=== PATIENT | female | born 1935 | race Hispanic/Latino ===

== ENCOUNTER 2017-02-23 05:21 | Emergency (ER) | payer MEDICARE ==
[2017-02-23 05:44] VITALS: RESP 18; TEMP 97.8; O2SAT 100
--- NOTE | 2017-02-23 05:48 | ED PDOC ---
Arrival/HPI - General Chief Complaint: Back Pain Time Seen by Provider: 02/23/17 05:41 Historian: Patient - History of Present Illness Narrative History of Present Illness (Text): 02/23/17 05:42 Lara Maxwell is an 82 year old female, whose past medical history includes diabetes and hypertension, who presents to the emergency department complaining of right-sided flank pain radiating to the front lower abdomen for a few hours. Patient's family notes patient experienced occassional nausea and urinary hesitancy early this morning. Patient denies any fever, chills, chest pain, shortness of breath, nausea, vomiting, diarrhea, neck pain, headache, dizziness , trauma/injury, suicidal/homicidal ideation or any other complaints. Time/Duration: 4-6 hours Symptom Onset: Gradual Symptom Course: Unchanged Severity Level: Mild Context: Home Past Medical History - Provider Review Nursing Documentation Reviewed: Yes - Infectious Disease Hx of Infectious Diseases: None - Cardiac Hx Cardiac Disorders: Yes Hx Hypertension: Yes - Pulmonary Hx Respiratory Disorders: Yes Hx Asthma: Yes Hx Emphysema: Yes - Renal Hx Renal Disorder: No - Endocrine/Metabolic Hx Endocrine Disorders: Yes Hx Diabetes Mellitus Type 2: Yes - Hematological/Oncological Hx Blood Disorders: No - Psychiatric Hx Substance Use: No - Surgical History Hx Cholecystectomy: Yes Hx Orthopedic Surgery: Yes (Left Knee Replacement) - Anesthesia Hx Anesthesia: Yes Hx Anesthesia Reactions: No Hx Malignant Hyperthermia: No Family/Social History - Physician Review Nursing Documentation Reviewed: Yes Family/Social History: No Known Family HX Smoking Status: Never Smoked Hx Alcohol Use: No Hx Substance Use: No Allergies/Home Meds Allergies/Adverse Reactions: Allergies No Known Allergies Allergy (Verified 02/23/17 05:35) Home Medications: Home Meds Medication Instructions Recorded Confirmed Aspirin [Adult Low Dose Aspirin EC] 81 mg PO DAILY 02/23/17 02/23/17 Atorvastatin [Lipitor] 20 mg PO HS 02/23/17 02/23/17 Azilsartan Med/Chlorthalidone 1 each PO [facility]HS 02/23/17 02/23/17 [Edarbyclor 40-25 mg Tablet] Azilsartan Medoxomil [Edarbi] 80 mg PO TTS 02/23/17 02/23/17 Carvedilol [Coreg CR] 20 mg PO DAILY 02/23/17 02/23/17 Doxazosin [Cardura] 2 mg PO DAILY 02/23/17 02/23/17 Fluticasone Furoate [Arnuity 200 mcg IH DAILY 02/23/17 02/23/17 Ellipta] Gabapentin [Neurontin] 100 mg PO TID 02/23/17 02/23/17 Insulin Glargine, Recombina 30 unit SQ HS 02/23/17 02/23/17 [Lantus] Nifedipine [Nifediac cc] 60 mg PO DAILY 02/23/17 02/23/17 Repaglinide [Prandin] 1 mg PO TID 02/23/17 02/23/17 Spironolactone [Aldactone] 25 mg PO DAILY 02/23/17 02/23/17 Umeclidinium Brm/Vilanterol Tr 1 each IH DAILY 02/23/17 02/23/17 [Anoro Ellipta 62.5-25 Mcg INH] Review of Systems - Physician Review All systems were reviewed & negative as marked: Yes - Review of Systems Constitutional: absent: Fevers, Night Sweats Eyes: absent: Vision Changes ENT: absent: Hearing Changes Respiratory: absent: SOB, Cough Cardiovascular: absent: Chest Pain, Syncope Gastrointestinal: absent: Abdominal Pain Genitourinary Female: Urine Output Changes. absent: Dysuria Musculoskeletal: Back Pain (right-sided flank pain radiating to front lower abdomen). absent: Arthralgias Skin: absent: Rash, Pruritis Neurological: absent: Headache, Dizziness Endocrine: absent: Diaphoresis Hemo/Lymphatic: absent: Adenopathy Psychiatric: absent: Depression Physical Exam Vital Signs Reviewed: Yes Vital Signs Temp Pulse Resp BP Pulse Ox 02/23/17 05:21 97.8 F 76 18 177/110 H 100 Temperature: Afebrile Blood Pressure: Hypertensive Pulse: Regular Respiratory Rate: Normal Appearance: Positive for: Well-Appearing, Non-Toxic, Comfortable Pain Distress: None Mental Status: Positive for: Alert and Oriented X 3 - Systems Exam Head: Present: Atraumatic, Normocephalic Pupils: Present: PERRL Extroacular Muscles: Present: EOMI Conjunctiva: Present: Normal Mouth: Present: Moist Mucous Membranes Pharnyx: Present: Normal Neck: Present: Normal Range of Motion Respiratory/Chest: Present: Clear to Auscultation, Good Air Exchange. No: Respiratory Distress, Accessory Muscle Use Cardiovascular: Present: Regular Rate and Rhythm, Normal S1, S2. No: Murmurs Abdomen: Present: Normal Bowel Sounds. No: Tenderness, Distention, Peritoneal Signs Back: Present: Normal Inspection. No: CVA Tenderness Upper Extremity: Present: Normal Inspection. No: Cyanosis, Edema Lower Extremity: Present: Normal Inspection. No: Edema Neurological: Present: GCS=15, CN II-XII Intact, Speech Normal Skin: Present: Warm, Dry, Normal Color. No: Rashes Psychiatric: Present: Alert, Oriented x 3, Normal Insight, Normal Concentration Medical Decision Making ED Course and Treatment: 02/23/17 05:49 Impression: 82 year old female complaining of right-sided flank pain radiating to the front lower abdomen for a few hours. Differential Diagnosis included but are not limited to: Plan: -- -- Reassess and disposition Prior Visits: Notes and results from previous visits were reviewed. Patient last seen in the ED on - Lab Interpretations Lab Results: 02/23/17 06:00 Lab Results 02/23/17 06:00: WBC 9.8, RBC 3.86, Hgb 10.2 L, Hct 31.9 L, MCV 82.6, MCH 26.4, MCHC 32.0, RDW 14.1, Plt Count 198, MPV 9.5 - RAD Interpretation Radiology Orders: 02/23/17 06:40 ABD & PELVIS W/O PO OR IV CONT [CT] Stat - EKG Interpretation EKG Interpretation (Text): 02/23/17 06:44 EKG-NSR@79 wavy baseline ,no acute changes Interpreted by ED Physician: Yes Type: 12 lead EKG - Medication Orders Current Medication Orders: Sodium Chloride (Sodium Chloride 0.9%) 1,000 mls @ 100 mls/hr IV .Q10H KELLEY Last Admin: 02/23/17 06:22 Dose: 100 mls/hr eMAR Start Stop Document 02/23/17 06:22 MAYRA (Rec: 02/23/17 06:23 JOPhoebe [id number]) Intravenous Solution Start Date 02/23/17 Start Time 06:22 Discontinued Medications Morphine Sulfate (Morphine) 2 mg IVP STAT STA Stop: 02/23/17 06:09 Last Admin: 02/23/17 06:23 Dose: 2 mg MAR Pain Assessment Document 02/23/17 06:23 MAYRA (Rec: 02/23/17 06:[id number] Pain Reassessment Is this a pain reassessment? No Sleep Is patient sleeping during reassessment? No Presence of Pain Presence of Pain Yes Pain Scale Used Pain Scale Used Numeric Location Upper or Lower Lower Pain Location Body Site Back Description Intensity of Pain at present 8 Pain Behavior Moaning Restlessness Facial Grimacing Aggravating Factors ADL's Changing Position IVP Administration Document 02/23/17 06:23 BECKIE (Rec: 02/23/17 06:23 [id number] Charges for Administration # of IVP Administrations 1 Ondansetron HCl (Zofran Inj) 4 mg IVP ONCE ONE Stop: 02/23/17 06:09 Last Admin: 02/23/17 06:23 Dose: 4 mg IVP Administration Document 02/23/17 06:23 BECKIE (Rec: 02/23/17 06:23 [id number] Charges for Administration # of IVP Administrations 1 - Transfer of Care Patient signed out to Dr:: Anthony Other: Labs/ua/CT abd/Pelvis/reassess/final disposition Disposition/Present on Arrival - Present on Arrival Any Indicators Present on Arrival: No History of DVT/PE: No History of Uncontrolled Diabetes: Yes Urinary Catheter: No History of Decub. Ulcer: No History Surgical Site Infection Following: Orthopedic Procedures - Disposition Have Diagnosis and Disposition been Completed?: No Diagnosis: Flank pain Disposition Time: 07:00 Patient Problems: Current Active Problems Problem Status Onset Flank pain Acute Condition: STABLE Referrals: En Diaz MD [Primary Care Provider] - Follow up with primary Forms: XO1 (Syriac)
[2017-02-23] MEDS ORDERED: Morphine 2 mg/ml ISec IVP STA (06:08)
[2017-02-23] MEDS ORDERED: Sodium Chloride 0.9% 1,000 ML IV SCH (06:15)
[2017-02-23] MEDS ORDERED: Morphine 2 mg/ml ISec ONE (06:17)
[2017-02-23 06:21] LABS: HEMATOCRIT 31.9 % (36.0-48.0); MEAN CELL VOLUME 82.6 fl (80.0-105.0); MEAN CORPUSCULAR HEMOGLOBIN 26.4 pg (25.0-35.0); MEAN PLATELET VOLUME 9.5 fl (7.0-11.0); RED CELL DISTRIBUTION WIDTH 14.1 % (11.5-14.5); WHITE BLOOD COUNT 9.8 10^3/ul (4.5-11.0)
--- NOTE | 2017-02-23 08:37 | CT ---
PROCEDURE: CT Abdomen and Pelvis without intravenous contrast HISTORY: Right flank pain COMPARISON: None. TECHNIQUE: CT scan of the abdomen and pelvis was performed without administration of intravenous contrast. Oral contrast was not administered. Coronal and sagittal reformatted images were obtained. Radiation dose: Total exam DLP = 1277.30 mGy-cm. This CT exam was performed using one or more of the following dose reduction techniques: Automated exposure control, adjustment of the mA and/or kV according to patient size, and/or use of iterative reconstruction technique. FINDINGS: LOWER THORAX: There is bibasilar subsegmental atelectasis. LIVER: The liver is normal in size. No gross lesion or ductal dilatation. GALLBLADDER AND BILE DUCTS: Surgically absent. PANCREAS: There is mild fatty atrophy of the pancreas. No gross lesion or ductal dilatation. SPLEEN: Normal in size. ADRENALS: Normal in size without discrete nodule. KIDNEYS AND URETERS: There is diffuse cortical atrophy in both kidneys. There is a 3 mm nonobstructing stone in the lower pole of the right kidney. There is mild distention of the right renal pelvis and mild diffuse dilatation of the right ureteral. No left hydronephrosis or nephrolithiasis. The left ureter is not dilated. VASCULATURE: There are atherosclerotic aortoiliac calcifications. No aortic aneurysm. BOWEL: The small bowel loops are normal in caliber. There is extensive colonic diverticulosis without CT evidence for acute diverticulitis. No bowel dilatation or obstruction. APPENDIX: Normal appendix. PERITONEUM: No free fluid. No free air. LYMPH NODES: No enlarged lymph nodes. BLADDER: The urinary bladder is well distended. There is a 2 mm stone in the dependent urinary bladder distal to the right UV junction. REPRODUCTIVE: The uterus is normal in size. BONES: No acute fracture. There is diffuse bone demineralization and advanced multilevel degenerative disc disease. OTHER FINDINGS: None. IMPRESSION: 1. Findings are most compatible with recent passage of a 2 mm right ureteral stone. No obstructive uropathy. 2. 3 mm nonobstructing stone in the lower pole of the right kidney. 3. Colonic diverticulosis without CT evidence for acute diverticulitis.
[2017-02-23 08:39] LABS: ALB/GLOB RATIO 1.4 (1.1-1.8); BILIRUBIN,TOTAL 0.5 mg/dL (0.2-1.3); CALCIUM 9.1 mg/dL (8.4-10.5); POTASSIUM 5.3 mmol/L (3.6-5.0); TOTAL PROTEIN 6.8 g/dL (5.8-8.3)
[2017-02-23 08:41] LABS: URINE BILIRUBIN NEGATIVE (NEGATIVE); URINE BLOOD LARGE (NEGATIVE); URINE GLUCOSE (UA) 100 mg/dL (NEGATIVE); URINE KETONE NEGATIVE (NEGATIVE); URINE LEUKOCYTE ESTERASE NEGATIVE Leu/uL (NEGATIVE); URINE PROTEIN 100 mg/dL (<30 mg/dL); URINE UROBILINOGEN 0.2 E.U./dL (<1 E.U./dL)
[2017-02-23 08:45] LABS: URINE APPEARANCE SL CLOUDY (CLEAR); URINE COLOR LIGHT RED (YELLOW)
[2017-02-23 09:03] LABS: URINE RBC TNTC /hpf (0-2)
[2017-02-23 09:04] LABS: URINE BACTERIA FEW (NEG)
--- NOTE | 2017-02-23 09:42 | CARD ---
APPROVED REPORT EKG Measurement Heart [id number] <Conclusion> Sinus rhythm Wandering baseline. NL
[2017-02-23 10:32] VITALS: BP 132/64; PULSE 88
== END 2017-02-23 10:39 | disposition home or self-care (01) ==
LOC: ED 05:21
DX: R10.9 Unspecified abdominal pain (principal); E11.9 Type 2 diabetes mellitus without complications; I10 Essential (primary) hypertension; Z79.4 Long term (current) use of insulin; Z79.82 Long term (current) use of aspirin
CPT/HCPCS: 74176; 80053; 81001; 83690; 85027; 93005; 96374; 96375; 99284; J2270; J2405; J7040

== ENCOUNTER 2017-09-03 11:54 | Inpatient (IN) | payer MEDICARE ==
[2017-09-03 11:57] VITALS: BMI 47.2
--- NOTE | 2017-09-03 12:13 | EDPD ---
HPI Stroke - General Time Seen by Provider: 09/03/17 11:55 Chief Complaint: Chest Pain Past Medical History - Infectious Disease Hx of Infectious Diseases: None - Cardiac Hx Cardiac Disorders: Yes Hx Hypertension: Yes - Pulmonary Hx Respiratory Disorders: Yes Hx Asthma: Yes Hx Emphysema: Yes Hx Sleep Apnea: Yes - Neurological Hx Neurological Disorder: No - HEENT Hx HEENT Disorder: No - Renal Hx Renal Disorder: No - Endocrine/Metabolic Hx Endocrine Disorders: Yes Hx Diabetes Mellitus Type 2: Yes - Hematological/Oncological Hx Blood Disorders: No - Integumentary Hx Dermatological Disorder: No - Musculoskeletal/Rheumatological Hx Musculoskeletal Disorders: No - Gastrointestinal Hx Gastrointestinal Disorders: No - Genitourinary/Gynecological Hx Genitourinary Disorders: No - Psychiatric Hx Psychophysiologic Disorder: No Hx Substance Use: No - Surgical History Hx Cholecystectomy: Yes Hx Orthopedic Surgery: Yes (Left Knee Replacement) - Anesthesia Hx Anesthesia: Yes Hx Anesthesia Reactions: No Hx Malignant Hyperthermia: No Allergies/Home Meds Allergies/Adverse Reactions: Allergies No Known Allergies Allergy (Verified 02/23/17 05:35) Home Medications: Home Meds Medication Instructions Recorded Confirmed Aspirin [Adult Low Dose Aspirin EC] 81 mg PO DAILY 02/23/17 02/23/17 Atorvastatin [Lipitor] 20 mg PO HS 02/23/17 02/23/17 Azilsartan Med/Chlorthalidone 1 each PO [facility] 02/23/17 02/23/17 [Edarbyclor 40-25 mg Tablet] Azilsartan Medoxomil [Edarbi] 80 mg PO TTS 02/23/17 02/23/17 Carvedilol [Coreg CR] 20 mg PO DAILY 02/23/17 02/23/17 Doxazosin [Cardura] 2 mg PO DAILY 02/23/17 02/23/17 Fluticasone Furoate [Arnuity 200 mcg IH DAILY 02/23/17 02/23/17 Ellipta] Gabapentin [Neurontin] 100 mg PO TID 02/23/17 02/23/17 Insulin Glargine, Recombina 30 unit SQ HS 02/23/17 02/23/17 [Lantus] Nifedipine [Nifediac cc] 60 mg PO DAILY 02/23/17 02/23/17 Repaglinide [Prandin] 1 mg PO TID 02/23/17 02/23/17 Spironolactone [Aldactone] 25 mg PO DAILY 02/23/17 02/23/17 Umeclidinium Brm/Vilanterol Tr 1 each IH DAILY 02/23/17 02/23/17 [Anoro Ellipta 62.5-25 Mcg INH] ED Stroke Physical Exam Vital Signs Temp Pulse Resp BP Pulse Ox 09/03/17 12:10 98.4 F 73 18 159/75 H 97 Medical Decision Making - RAD Interpretation Radiology Orders: 09/03/17 12:11 HEAD W/O (CODE STROKE) [CT] Stat CHEST PORTABLE [RAD] Stat NIHSS Scale ([place]) Time Performed: 12:12 - How Severe is the Stoke Baseline Level of Consciousness: 0=Alert LOC to Questions: 0=Both comments correct LOC to commands: 0=Obeys both correctly Best Gaze: 0=Normal Visual: 0=No visual loss Facial: 0=Normal Motor Arm - Left: 0=No drift Motor Arm - Right: 0=No drift Motor Leg - Left: 0=No drift Motor Leg - Right: 0=No drift Limb Ataxia: 0=Absent Sensory: 0=Normal Best Language: 1=Mild to moderate aphasia Dysarthia: 0=Normal articulation Extinction & Inattention (Neglect): 0=Normal, no object Score: 1 Risk Level: Minor Stroke Risk Disposition/Present on Arrival - Present on Arrival History of DVT/PE: No History of Uncontrolled Diabetes: Yes Urinary Catheter: No History of Decub. Ulcer: No History Surgical Site Infection Following: Orthopedic Procedures - Disposition
[2017-09-03] MEDS ORDERED: Sodium Chloride 0.9% 1,000 ML IV SCH (12:15)
--- NOTE | 2017-09-03 12:16 | ED PDOC ---
Arrival/HPI - General Chief Complaint: Chest Pain Time Seen by Provider: 09/03/17 11:55 Historian: Patient, Family (son - Nick) Past Medical History - Infectious Disease Hx of Infectious Diseases: None - Cardiac Hx Cardiac Disorders: Yes Hx Hypertension: Yes - Pulmonary Hx Respiratory Disorders: Yes Hx Asthma: Yes Hx Emphysema: Yes Hx Sleep Apnea: Yes - Neurological Hx Neurological Disorder: No - HEENT Hx HEENT Disorder: No - Renal Hx Renal Disorder: No - Endocrine/Metabolic Hx Endocrine Disorders: Yes Hx Diabetes Mellitus Type 2: Yes - Hematological/Oncological Hx Blood Disorders: No - Integumentary Hx Dermatological Disorder: No - Musculoskeletal/Rheumatological Hx Musculoskeletal Disorders: No - Gastrointestinal Hx Gastrointestinal Disorders: No - Genitourinary/Gynecological Hx Genitourinary Disorders: No - Psychiatric Hx Psychophysiologic Disorder: No Hx Substance Use: No - Surgical History Hx Cholecystectomy: Yes Hx Orthopedic Surgery: Yes (Left Knee Replacement) - Anesthesia Hx Anesthesia: Yes Hx Anesthesia Reactions: No Hx Malignant Hyperthermia: No Family/Social History Smoking Status: Never Smoked Hx Alcohol Use: No Hx Substance Use: No Allergies/Home Meds Allergies/Adverse Reactions: Allergies No Known Allergies Allergy (Verified 02/23/17 05:35) Home Medications: Home Meds Medication Instructions Recorded Confirmed Aspirin [Adult Low Dose Aspirin EC] 81 mg PO DAILY 02/23/17 02/23/17 Atorvastatin [Lipitor] 20 mg PO HS 02/23/17 02/23/17 Azilsartan Med/Chlorthalidone 1 each PO [facility] 02/23/17 02/23/17 [Edarbyclor 40-25 mg Tablet] Azilsartan Medoxomil [Edarbi] 80 mg PO TTS 02/23/17 02/23/17 Carvedilol [Coreg CR] 20 mg PO DAILY 02/23/17 02/23/17 Doxazosin [Cardura] 2 mg PO DAILY 02/23/17 02/23/17 Fluticasone Furoate [Arnuity 200 mcg IH DAILY 02/23/17 02/23/17 Ellipta] Gabapentin [Neurontin] 100 mg PO TID 02/23/17 02/23/17 Insulin Glargine, Recombina 30 unit SQ HS 02/23/17 02/23/17 [Lantus] Nifedipine [Nifediac cc] 60 mg PO DAILY 02/23/17 02/23/17 Repaglinide [Prandin] 1 mg PO TID 02/23/17 02/23/17 Spironolactone [Aldactone] 25 mg PO DAILY 02/23/17 02/23/17 Umeclidinium Brm/Vilanterol Tr 1 each IH DAILY 02/23/17 02/23/17 [Anoro Ellipta 62.5-25 Mcg INH] Physical Exam Vital Signs Temp Pulse Resp BP Pulse Ox 09/03/17 12:10 98.4 F 73 18 159/75 H 97 Disposition/Present on Arrival - Present on Arrival History of DVT/PE: No History of Uncontrolled Diabetes: Yes Urinary Catheter: No History of Decub. Ulcer: No History Surgical Site Infection Following: Orthopedic Procedures - Disposition
--- NOTE | 2017-09-03 12:42 | EDPD ---
HPI Stroke - General Historian: Patient, Family (Son - Nick) - History of Present Illness Narrative History of Present Illness (Free Text): Patient is 82 year old female with a past medical history of diabetes, hypertension and hyperlipidemia presenting tot he emergency room with a complaint of right sided weakness and aphasia. Patient's son Nick lives with the patient and states that he found her around 11 am this morning having difficulty talking. The last time she was seen normal was last night before bed around 10 pm. The son found her sitting on the bed this morning with one leg off and one leg on the bed when she felt like she was unable to move. She states that she had feeling in her leg but did not have the strength to get it to move. The son states that when he was talking to her, she was having difficulty finding words and was not making sense. She states she felt like she was in a cloud and her body was not responding to her. When asked her different questions like he who was, she had a blank stare on her face and had to pause before attempting to answer. He decided to called 911. When EMS showed up and attempted to transfer her, she complained of chest discomfort. The chest discomfort resolved when she laid flat and does not have any currently upon initial exam. She currently is complaining of a headache but is feeling a lot better. Patient's son states that she has improved drastically compared to the condition she was in this morning. Denies fevers, chills, nausea, vomiting, diarrhea, constipation, shortness of breath, abdominal pain or vision changes. PMD: Cardio: Elkind Onset:: This morning Timing: Currently Symptomatic, Improved Context: Other (upon waking) Associated Symptoms: other (aphasia) Exacerbated by: Nothing - Pain Assessment/Levels Maximum Severity: None Severity Current: None <Silas Swenson - Last Filed: 09/03/17 18:31> <Hieu Newell - Last Filed: 09/03/17 19:06> - General Time Seen by Provider: 09/03/17 11:55 Chief Complaint: Chest Pain rTPA Inclusion/Exclusion - Refusal of Treatment Patient Refused Treatment: No - Inclusion Criteria for Altepase Patient is 18 years or Older: Yes The Clinical Diagnosis of Ischemic Stroke That is Causing a Potentially Disabling Neurological Deficit: Yes Time of Onset is Well Established to be Less Than 270 Minute Before Treatment Would Begin: No Risk/Benefit Discussed With Patient/Family Member Present: No <Silas Swenson - Last Filed: 09/03/17 18:31> - Refusal of Treatment Patient Refused Treatment: No - Inclusion Criteria for Altepase Patient is 18 years or Older: Yes The Clinical Diagnosis of Ischemic Stroke That is Causing a Potentially Disabling Neurological Deficit: Yes Time of Onset is Well Established to be Less Than 270 Minute Before Treatment Would Begin: No Risk/Benefit Discussed With Patient/Family Member Present: No <Hieu Newell - Last Filed: 09/03/17 19:06> Past Medical History - Provider Review Nursing Documentation Reviewed: Yes - Infectious Disease Hx of Infectious Diseases: None - Cardiac Hx Cardiac Disorders: Yes Hx Hypertension: Yes - Pulmonary Hx Respiratory Disorders: Yes Hx Asthma: Yes Hx Emphysema: Yes Hx Sleep Apnea: Yes - Neurological Hx Neurological Disorder: No - HEENT Hx HEENT Disorder: No - Renal Hx Renal Disorder: No - Endocrine/Metabolic Hx Endocrine Disorders: Yes Hx Diabetes Mellitus Type 2: Yes - Hematological/Oncological Hx Blood Disorders: No - Integumentary Hx Dermatological Disorder: No - Musculoskeletal/Rheumatological Hx Musculoskeletal Disorders: No - Gastrointestinal Hx Gastrointestinal Disorders: No - Genitourinary/Gynecological Hx Genitourinary Disorders: No - Psychiatric Hx Psychophysiologic Disorder: No Hx Substance Use: No - Surgical History Hx Cholecystectomy: Yes Hx Orthopedic Surgery: Yes (Left Knee Replacement) - Anesthesia Hx Anesthesia: Yes Hx Anesthesia Reactions: No Hx Malignant Hyperthermia: No <Silas Swenson - Last Filed: 09/03/17 18:31> Family/Social History - Family/Social History Family History: Non-Contributory Tobacco: Never Smoked Alcohol: None Drugs: Geoffrey - Review Nursing documentation reviewed.: Yes <Silas Swenson - Last Filed: 09/03/17 18:31> - Family/Social History Family History: Non-Contributory <Hieu Newell - Last Filed: 09/03/17 19:06> Allergies/Home Meds <Silas Swenson - Last Filed: 09/03/17 18:31> <Hieu Newell - Last Filed: 09/03/17 19:06> Allergies/Adverse Reactions: Allergies No Known Allergies Allergy (Verified 09/03/17 15:35) Home Medications: Home Meds Medication Instructions Recorded Confirmed Aspirin [Adult Low Dose Aspirin EC] 81 mg PO DAILY 02/23/17 09/03/17 Atorvastatin [Lipitor] 20 mg PO HS 02/23/17 09/03/17 Azilsartan Med/Chlorthalidone 1 each PO WMHS 02/23/17 09/03/17 [Edarbyclor 40-25 mg Tablet] Azilsartan Medoxomil [Edarbi] 80 mg PO TTS 02/23/17 09/03/17 Carvedilol [Coreg CR] 20 mg PO DAILY 02/23/17 09/03/17 Doxazosin [Cardura] 2 mg PO DAILY 02/23/17 09/03/17 Fluticasone Furoate [Arnuity 200 mcg IH DAILY 02/23/17 09/03/17 Ellipta] Gabapentin [Neurontin] 100 mg PO TID 02/23/17 09/03/17 Insulin Glargine, Recombina 30 unit SQ HS 02/23/17 09/03/17 [Lantus] Nifedipine [Nifediac cc] 60 mg PO DAILY 02/23/17 09/03/17 Repaglinide [Prandin] 1 mg PO TID 02/23/17 09/03/17 Spironolactone [Aldactone] 25 mg PO DAILY 02/23/17 09/03/17 Umeclidinium Brm/Vilanterol Tr 1 each IH DAILY 02/23/17 09/03/17 [Anoro Ellipta 62.5-25 Mcg INH] Review of Systems - Patients Enrolled in [employer] [X]: A conversation was conducted with the primary medical doctor. - Physician Review All systems were reviewed & negative as marked: Yes - Review of Systems Constitutional: Fatigue. absent: Fevers Eyes: Normal. absent: Vision Changes, Eye Pain ENT: Normal. absent: Sore Throat, Rhinorrhea, Sinus Congestion Respiratory: Normal. absent: SOB, Cough, Wheezing Cardiovascular: Chest Pain. absent: Palpitations, Edema Gastrointestinal: Normal. absent: Abdominal Pain, Constipation, Diarrhea, Nausea, Vomiting Musculoskeletal: Back Pain Skin: Normal. absent: Rash Neurological: Normal, Speech Changes (aphasic - struggling to find correct words ). absent: Headache, Dizziness, Focal Weakness Endocrine: Normal. absent: Diaphoresis Hemo/Lymphatic: Normal. absent: Adenopathy Psychiatric: Normal <LeelaSilas - Last Filed: 09/03/17 18:31> ED Stroke Physical Exam Vital Signs Reviewed: Yes Vital Signs Temp Pulse Resp BP Pulse Ox 09/03/17 12:10 98.4 F 73 18 159/75 H 97 Temperature: Afebrile Blood Pressure: Hypertensive Pulse: Regular Respiratory Rate: Normal Appearance: Positive for: Non-Toxic, Comfortable Pain Distress: None Mental Status: Positive for: Alert and Oriented X 3 - Systems Exam Head: Present: Atraumatic, Normocephalic. No: Contusion, Swelling, Ecchymosis Pupils: Present: PERRL Extroacular Muscles: Present: EOMI Conjunctiva: Present: Normal Mouth: Present: Moist Mucous Membranes Neck: Present: Normal Range of Motion Respiratory/Chest: Present: Clear to Auscultation, Good Air Exchange. No: Respiratory Distress, Accessory Muscle Use Cardiovascular: Present: Regular Rate and Rhythm, Normal S1, S2. No: Murmurs Abdomen: Present: Normal Bowel Sounds. No: Tenderness, Distention, Peritoneal Signs Genitourinary/Pelvic Exam: Present: NI. No: C, E Back: Present: GCS, CN, SP Upper Extremity: Present: Normal Inspection, NORMAL PULSES. No: Cyanosis, Edema Lower Extremity: Present: Normal Inspection, NORMAL PULSES. No: Edema, CALF TENDERNESS Neurologic: Present: GCS=15, CN II-XII Intact, Motor Func Grossly Intact, Normal Sensory Function, Normal Cerebellar Funct, Memory Normal. No: Speech Normal (aphasic - difficulty finding words), Pronator Drift, Facial Droop, Dysmetric Finger to Nose Skin: Present: Warm, Dry, Normal Color. No: Rashes Lymphatic: No: Cervical Adenopathy Psychiatric: Present: Alert, Oriented x 3, Normal Insight, Normal Concentration <LeelaSilas - Last Filed: 09/03/17 18:31> Vital Signs Temp Pulse Pulse Resp BP BP Pulse Ox 09/03/17 12:10 98.4 F 73 18 159/75 H 97 09/03/17 11:59 70 159/52 H Temperature: Afebrile Blood Pressure: Hypertensive Pulse: Regular Respiratory Rate: Normal Appearance: Positive for: Non-Toxic, Comfortable Pain Distress: None Mental Status: Positive for: Alert and Oriented X 3 - Systems Exam Head: Present: Atraumatic, Normocephalic Pupils: Present: PERRL Extroacular Muscles: Present: EOMI Conjunctiva: Present: Normal Mouth: Present: Moist Mucous Membranes Neck: Present: Normal Range of Motion Respiratory/Chest: Present: Clear to Auscultation, Good Air Exchange. No: Respiratory Distress, Accessory Muscle Use Cardiovascular: Present: Regular Rate and Rhythm, Normal S1, S2. No: Murmurs Abdomen: Present: Normal Bowel Sounds. No: Tenderness, Distention, Peritoneal Signs Genitourinary/Pelvic Exam: Present: NI. No: C, E Back: Present: GCS, CN, SP Upper Extremity: Present: Normal Inspection. No: Cyanosis, Edema Lower Extremity: Present: Normal Inspection. No: Edema Neurologic: Present: GCS=15, CN II-XII Intact, Motor Func Grossly Intact, Normal Sensory Function, Normal Cerebellar Funct, Memory Normal Skin: Present: Warm, Dry, Normal Color. No: Rashes Lymphatic: Present: OX3, NI, NC Psychiatric: Present: Alert, Oriented x 3, Normal Insight, Normal Concentration <Hieu Newell - Last Filed: 09/03/17 19:06> Medical Decision Making Reassessment Condition: Improving,but remains with symptoms - Lab Interpretations I have reviewed the lab results: Yes - RAD Interpretation Narrative RAD Interpretations (Text): 09/03/17 17:[address] w/o - Mild age related neuro degenerative changes are appreciated which appear age-appropriate. No definite acute intracranial findings by standard CT criteria. Follow-up CT or MRI are available as clinically warranted. Head CTA -Unremarkable CT Angiography of the Brain. CXR - Potential CHF however limited penetration accentuates the vasculature throughout the chest. Further clinical correlation is recommended. No definite infiltrate or pleural effusion identified bilaterally Radiology Orders: 09/03/17 12:11 HEAD W/O (CODE STROKE) [CT] Stat CHEST PORTABLE [RAD] Stat 09/03/17 12:14 CTA HEAD/NECK CODE STROKE [CT] Stat Senior Ui Developer: Radiologist - Medication Orders Current Medication Orders: Sodium Chloride (Sodium Chloride 0.9%) 1,000 mls @ 100 mls/hr IV .Q10H KELLEY <Silas Swenson - Last Filed: 09/03/17 18:31> ED Course and Treatment: 09/03/17 Impression: CVA vs Hypoglycemic Episode Plan: -- CT Head -- EKG -- Chest X-ray -- Labs -- Sodium Chloride -- Reassess and disposition Progress Notes: 09/03/[address] Danielle, neurology, who called back for code stroke and agreed to give Aspirin after negative CT scan. Dr. Danielle came to bedside and despite hypoglycemia, she is concerned for CVA as well. Plans to admit patient for MRI and work up. 09/03/17 EKG: Ordered, reviewed, and independently interpreted the EKG. Rate : 74 BPM Rhythm : NSR Interpretation : No ST-segment elevations or depressions, no T-wave inversions, normal intervals. Case was discussed with Dr. Garcia who accepted the patient to her service. - Lab Interpretations Lab Results: 09/03/17 12:25 09/03/17 12:25 Lab Results 09/03/17 13:06: POC Glucose (mg/dL) 44 L 09/03/17 12:25: Sodium 143, Potassium 5.2 H, Chloride 113 H, Carbon Dioxide 19 L , Anion Gap 16, BUN 53 H, Creatinine 1.7 H, Est GFR ( Amer) 35, Est GFR ( Non-Af Amer) 29, Random Glucose 55 L, Calcium 9.2, Total Bilirubin 0.3, AST 36, ALT 38, Alkaline Phosphatase 68, Troponin I < 0.01, NT-Pro-B Natriuret Pep 169, Total Protein 6.9, Albumin 4.1, Globulin 2.8, Albumin/Globulin Ratio 1.4, Triglycerides 52, Cholesterol 114 L, LDL Cholesterol Direct 44, HDL Cholesterol 52 09/03/17 12:25: PT 11.2, INR 0.97, APTT 31.8 09/03/17 12:25: WBC 6.9 D, RBC 3.75, Hgb 9.7 L, Hct 30.7 L, MCV 81.9, MCH 25.9 , MCHC 31.6, RDW 14.5, Plt Count 184, MPV 9.4, Gran % 77.1 H, Lymph % (Auto) 16.7 L, [place] % (Auto) 5.7, Eos % (Auto) 0.4 L, Baso % (Auto) 0.1, Gran # 5.32, Lymph # (Auto) 1.2, [place] # (Auto) 0.4, Eos # (Auto) 0.0, Baso # (Auto) 0.01 - RAD Interpretation Radiology Orders: 09/03/17 12:11 HEAD W/O (CODE STROKE) [CT] Stat CHEST PORTABLE [RAD] Stat 09/03/17 12:14 CTA HEAD/NECK CODE STROKE [CT] Stat - Medication Orders Current Medication Orders: Sodium Chloride (Sodium Chloride 0.9%) 1,000 mls @ 100 mls/hr IV .Q10H KELLEY <Hieu Newell - Last Filed: 09/03/17 19:06> - PA / HUMAN RESOURCES FILE CLERK / Resident Statement MD/DO has reviewed & agrees with the documentation as recorded. MD/DO has examined the patient and agrees with the treatment plan. - Scribe Statement The provider has reviewed the documentation as recorded by the Scribe Essence Rae Provider Scribe Attestation: All medical record entries made by the Scribe were at my direction and personally dictated by me. I have reviewed the chart and agree that the record accurately reflects my personal performance of the history, physical exam, medical decision making, and the department course for this patient. I have also personally directed, reviewed, and agree with the discharge instructions and disposition. <Hieu Newell - Last Filed: 09/03/17 19:06> NIHSS Scale ([place]) Time Performed: 12:10 (score of 1 (aphasic - difficulty finding words)) <Silas Swenson - Last Filed: 09/03/17 18:31> - How Severe is the Stoke Baseline Level of Consciousness: 0=Alert LOC to Questions: 0=Both comments correct LOC to commands: 0=Obeys both correctly Best Gaze: 0=Normal Visual: 0=No visual loss Facial: 0=Normal Motor Arm - Left: 0=No drift Motor Arm - Right: 0=No drift Motor Leg - Left: 0=No drift Motor Leg - Right: 0=No drift Limb Ataxia: 0=Absent Sensory: 0=Normal Best Language: 1=Mild to moderate aphasia Dysarthia: 0=Normal articulation Extinction & Inattention (Neglect): 0=Normal, no object Score: 1 Risk Level: Minor Stroke Risk <Hieu Newell - Last Filed: 09/03/17 19:06> Disposition/Present on Arrival - Present on Arrival Any Indicators Present on Arrival: Yes History of DVT/PE: No History of Uncontrolled Diabetes: Yes Urinary Catheter: No History of Decub. Ulcer: No History Surgical Site Infection Following: Orthopedic Procedures - Disposition Have Diagnosis and Disposition been Completed?: Yes Disposition Time: 13:50 Patient Plan: Telemetry <Silas Swenson - Last Filed: 09/03/17 18:31> - Present on Arrival Any Indicators Present on Arrival: Yes <Hieu Newell - Last Filed: 09/03/17 19:06> - Disposition Diagnosis: CVA (cerebral vascular accident) Disposition: HOSPITALIZED Condition: GUARDED
[2017-09-03 12:54] LABS: BASO # 0.01 K/mm3 (0.0-2.0); BASO % 0.1 % (0.0-3.0); EOS % 0.4 % (1.5-5.0); GRAN # 5.32 (1.4-6.5); GRAN % 77.1 % (50.0-68.0); HEMOGLOBIN 9.7 g/dL (12.0-16.0); LYMPH # 1.2 (1.2-3.4); LYMPH % 16.7 % (22.0-35.0); MEAN CELL VOLUME 81.9 fl (80.0-105.0); MEAN CORPUSCULAR HEMOGLOBIN 25.9 pg (25.0-35.0); MEAN CORPUSCULAR HGB CONC 31.6 g/dl (31.0-37.0); MEAN PLATELET VOLUME 9.4 fl (7.0-11.0); MONO # 0.4 (0.1-0.6); MONO % 5.7 % (1.0-6.0); RBC 3.75 10^6/uL (3.5-6.1); RED CELL DISTRIBUTION WIDTH 14.5 % (11.5-14.5); WHITE BLOOD COUNT 6.9 10^3/ul (4.5-11.0)
--- NOTE | 2017-09-03 13:04 | RAD ---
HISTORY: Code Stroke COMPARISON: Chest radiographs 08/04/2016. FINDINGS: LUNGS: No definitive infiltrate is appreciated bilaterally. PLEURA: No significant pleural effusion identified, no pneumothorax apparent. CARDIOVASCULAR: Cardiomegaly is likely. Frontal technique likely accentuates cardiac silhouette at least in part. Further, there is limited technical penetration and hilar vascular markings appear extension weighted. An element of CHF is not excluded nevertheless. OSSEOUS STRUCTURES: No significant abnormalities. VISUALIZED UPPER ABDOMEN: Normal. OTHER FINDINGS: None. IMPRESSION: Potential CHF however limited penetration accentuates the vasculature throughout the chest. Further clinical correlation is recommended. No definite infiltrate or pleural effusion identified bilaterally.
[2017-09-03 13:05] LABS: ALB/GLOB RATIO 1.4 (1.1-1.8); ALBUMIN 4.1 g/dL (3.0-4.8); ALT/SGPT 38 U/L (7-56); AST/SGOT 36 U/L (14-36); BLOOD UREA NITROGEN 53 mg/dL (7-21); CALCIUM 9.2 mg/dL (8.4-10.5); GFR AFRICAN-AMERICAN 35; GFR NON-AFRICAN AMERICAN 29; HDL CHOLESTEROL 52 mg/dL (29-60)
[2017-09-03] MEDS ORDERED: Dextrose 50% SYRINGE Inj (50 ml) IVP STA (13:08)
[2017-09-03] MEDS ORDERED: Dextrose 50% SYRINGE Inj (50 ml) ONE (13:08)
[2017-09-03 13:13] LABS: INR 0.97 (0.93-1.08); PARTIAL THROMBOPLASTIN TIME 31.8 Seconds (25.1-36.5); PROTHROMBIN TIME 11.2 SECONDS (9.4-12.5)
[2017-09-03 13:15] LABS: LDL CHOLESTEROL 44 mg/dL (0-129)
[2017-09-03 13:19] LABS: B-TYPE NATRIURETIC PEPTIDE 169 pg/mL (0-450); TROPONIN I < 0.01 ng/mL
--- NOTE | 2017-09-03 13:41 | CT ---
PROCEDURE: CT HEAD WITHOUT CONTRAST. HISTORY: Code Stroke COMPARISON: None available. TECHNIQUE: Axial computed tomography images were obtained through the head/brain without intravenous contrast. Radiation dose: Total exam DLP = 945.92 mGy-cm. This CT exam was performed using one or more of the following dose reduction techniques: Automated exposure control, adjustment of the mA and/or kV according to patient size, and/or use of iterative reconstruction technique. FINDINGS: HEMORRHAGE: No intracranial hemorrhage. BRAIN: Good corticomedullary differentiation is seen. Limited diffuse expansion of the ventriculosulcal and cisternal spaces is appreciated with white matter lucency compatible with diffuse cerebral atrophy and chronic microangiopathy. No suspicious extra-axial fluid collection is identified and the midline brain anatomy appears grossly nonfocal as imaged. There is no mass effect throughout. VENTRICLES: Unremarkable. No hydrocephalus. CALVARIUM: Unremarkable. PARANASAL SINUSES: Unremarkable as visualized. No significant inflammatory changes. MASTOID AIR CELLS: Unremarkable as visualized. No inflammatory changes. OTHER FINDINGS: None. IMPRESSION: Mild age related neuro degenerative changes are appreciated which appear age-appropriate. No definite acute intracranial findings by standard CT criteria. Follow-up CT or MRI are available as clinically warranted. Findings discussed with Dr. Newell with written down and read back verification 09/03/2017 12:49 p.m. Note, technical problem with accession number at prior to matching case.
--- NOTE | 2017-09-03 15:23 | CP.PCM.HP ---
<Josephine Aburto - Last Filed: 09/03/17 18:32> History of Present Illness - History of Present Illness History of Present Illness: 82yo female PMHx HTN, HLD, DM, and asthma presents to [facility] for right sided weakness and aphasia. History as per patient who was back to baseline in the ED and AO x 3. She reported that she woke up this morning and was unable to move and was having difficulty finding her words. The last time she was seen normal was last night before bed around 10 pm. When her son found her, patient was sitting on her bed with one leg off. She said she felt like she didn't have the strength to move and she continued to have difficulty answering questions. Patient also complained of some chest discomfort at home which she described as a pressure like sensation in the middle of her chest. She rated the pain 5-6/10 and it had resolved when she lay flat and by the time she came to the ER. On ROS patient admitted to headache, dizziness, and b/l knee pain. She denied fever , chills, blurry vision, sore throat, palpitations, SOB, cough, abd pain, nausea , vomiting, bowel/bladder complaints. Patient ambulates with a walker and completes ADLs. She denied any recent travel/sick contacts. PMHx: HTN, HLD, DM, asthma PSHx: cholecystectomy 15years ago, L knee arthroplasty 2005 Meds: pls see chart Allergies: denies Social Hx: denies tobacco, EtOH, drug use; lives at home with her son; retired PMD: - last seen 6-8mo ago [employer]: Dr. Call Control Clerk [employer]: Dr. Irby- last seen 09/02 Stock Room Manager: Dr. Montilla Present on Admission - Present on Admission Any Indicators Present on Admission: No Review of Systems - Review of Systems All systems: reviewed and no additional remarkable complaints except - Constitutional Constitutional: As Per HPI. absent: Chills, Fever - EENT Eyes: As Per HPI. absent: Blurred Vision Ears: As Per HPI, Dizziness Nose/Mouth/Throat: As Per HPI. absent: Sore Throat - Cardiovascular Cardiovascular: As Per HPI, Chest Pain. absent: Dyspnea, Lightheadedness, Orthopnea - Respiratory Respiratory: As Per HPI. absent: Cough, Dyspnea, Dyspnea on Exertion - Gastrointestinal Gastrointestinal: As Per HPI. absent: Abdominal Pain, Constipation, Diarrhea, Nausea, Vomiting - Genitourinary Genitourinary: As Per HPI. absent: Dysuria, Hematuria - Musculoskeletal Musculoskeletal: As Per HPI, Arthralgias - Integumentary Integumentary: As Per HPI. absent: Dry Skin - Neurological Neurological: As Per HPI, Abnormal Speech, Dizziness, Focal Weakness, Headaches - Endocrine Endocrine: As Per HPI. absent: Palpitations, Polydipsia, Polyuria - Hematologic/Lymphatic Hematologic: As Per HPI. absent: Easy Bleeding, Easy Bruising Past Patient History - Infectious Disease Hx of Infectious Diseases: None - Past Social History Smoking Status: Never Smoked - CARDIAC Hx Cardiac Disorders: Yes Hx Hypertension: Yes - PULMONARY Hx Respiratory Disorders: Yes Hx Asthma: Yes Hx Emphysema: Yes Hx Sleep Apnea: Yes - NEUROLOGICAL Hx Neurological Disorder: No - HEENT Hx HEENT Problems: No - RENAL Hx Chronic Kidney Disease: No - ENDOCRINE/METABOLIC Hx Endocrine Disorders: Yes Hx Diabetes Mellitus Type 2: Yes - HEMATOLOGICAL/ONCOLOGICAL Hx Blood Disorders: No - INTEGUMENTARY Hx Dermatological Problems: No - MUSCULOSKELETAL/RHEUMATOLOGICAL Hx Musculoskeletal Disorders: No - GASTROINTESTINAL Hx Gastrointestinal Disorders: No - GENITOURINARY/GYNECOLOGICAL Hx Genitourinary Disorders: No - PSYCHIATRIC Hx Psychophysiologic Disorder: No Hx Substance Use: No - SURGICAL HISTORY Hx Cholecystectomy: Yes Hx Orthopedic Surgery: Yes (Left Knee Replacement) - ANESTHESIA Hx Anesthesia: Yes Hx Anesthesia Reactions: No Hx Malignant Hyperthermia: No Meds Allergies/Adverse Reactions: Allergies Allergy/AdvReac Type Severity Reaction Status Date / Time No Known Allergies Allergy Verified 09/03/17 15:35 Physical Exam - Constitutional Appears: Non-toxic, No Acute Distress - Head Exam Head Exam: ATRAUMATIC, NORMAL INSPECTION, NORMOCEPHALIC - Eye Exam Eye Exam: EOMI, Normal appearance, PERRL. absent: Conjunctival injection, Scleral icterus - ENT Exam ENT Exam: Mucous Membranes Moist - Neck Exam Neck exam: Positive for: Normal Inspection. Negative for: Lymphadenopathy - Respiratory Exam Respiratory Exam: Wheezes (scant b/l), NORMAL BREATHING PATTERN. absent: Accessory Muscle Use, Rales, Rhonchi, Respiratory Distress - Cardiovascular Exam Cardiovascular Exam: REGULAR RHYTHM, RRR, +S1, +S2 - GI/Abdominal Exam GI & Abdominal Exam: Normal Bowel Sounds, Soft. absent: Firm, Guarding, Tenderness - Rectal Exam Rectal Exam: Deferred - Extremities Exam Extremities exam: Positive for: pedal edema (+1 b/l with chronic venous stasis) - Back Exam Back exam: NORMAL INSPECTION. absent: rash noted - Neurological Exam Neurological exam: Alert, CN II-XII Intact, Oriented x3 - Psychiatric Exam Psychiatric exam: Normal Affect, Normal Mood - Skin Skin Exam: Dry, Intact, Normal Color, Warm Results - Vital Signs Recent Vital Signs: Last Vital Signs Temp 98.4 F 09/03/17 12:10 Pulse 73 09/03/17 12:10 Resp 18 09/03/17 12:10 BP 159/75 H 09/03/17 12:10 Pulse Ox 97 09/03/17 12:10 - Labs Result Diagrams: 09/03/17 12:25 09/03/17 12:25 Labs: Laboratory Results - last 24 hr 09/03/17 15:11 POC Glucose (mg/dL) 94 Assessment & Plan - Assessment and Plan (Free Text) Assessment: 82yo female PMHx HTN, HLD, DM, and asthma presents to [facility] for right sided weakness and aphasia. Patient admitted to TELE Plan: AMS -resolved -Head CT: Mild age related neuro degenerative changes are appreciated which appear age-appropriate. No definite acute intracranial findings by standard CT criteria. -Head CTA: unremarkable -likely secondary to hypoglycemia in light of patient's BG being 44 on accucheck on arrival to ED -f/u UA -HoB above 45 degrees -Neuro Dr. Porter consulted Hx of HTN -continue home meds -Hydralazine prn -Cardio Dr Call consulted Hx of DM2 -RISS low -Accucheck q4 in light of hypoglycemia -f/u HgbA1c Hx of HLD -continue home med Hx of asthma -Duoneb prn Anemia -f/u anemia work up GI ppx: pepcid 20mg po bid DVT ppx: Heparin 5000u sc q8 Diet: HHD with LONG-TERM PT ordered Discussed with Dr. Nina Aburto PGY2 <Khadijah Wood - Last Filed: 09/04/17 18:08> Results - Vital Signs Recent Vital Signs: Last Vital Signs Temp 98 F 09/04/17 11:21 Pulse 83 09/04/17 14:00 Resp 18 09/04/17 11:21 BP 164/60 H 09/04/17 11:21 Pulse Ox 96 09/04/17 06:00 - Labs Result Diagrams: 09/04/17 05:45 09/04/17 05:25 Labs: Laboratory Results - last 24 hr 09/03/17 09/03/17 09/03/17 14:39 19:35 19:35 WBC RBC Hgb Hct MCV MCH MCHC RDW Plt Count MPV Gran % Lymph % (Auto) [place] % (Auto) Eos % (Auto) Baso % (Auto) Gran # Lymph # (Auto) [place] # (Auto) Eos # (Auto) Baso # (Auto) Sodium Potassium Chloride Carbon Dioxide Anion Gap BUN Creatinine Est GFR ( Amer) Est GFR (Non-Af Amer) POC Glucose (mg/dL) Random Glucose Calcium Iron TIBC % Saturation Transferrin 210.30 Ferritin Total Bilirubin AST ALT Alkaline Phosphatase Troponin I 0.01 Total Protein Albumin Globulin Albumin/Globulin Ratio Vitamin B12 337 Folate > 20.0 Urine Color Urine Appearance Urine pH Ur Specific [place] Urine Protein Urine Glucose (UA) Urine Ketones Urine Blood Urine Nitrate Urine Bilirubin Urine Urobilinogen Ur Leukocyte Esterase Urine RBC Urine WBC Ur Epithelial Cells Blood Type Confirm A POSITIVE 09/03/17 09/03/17 09/03/17 19:35 19:35 21:49 WBC RBC Hgb Hct MCV MCH MCHC RDW Plt Count MPV Gran % Lymph % (Auto) [place] % (Auto) Eos % (Auto) Baso % (Auto) Gran # Lymph # (Auto) [place] # (Auto) Eos # (Auto) Baso # (Auto) Sodium Potassium Chloride Carbon Dioxide Anion Gap BUN Creatinine Est GFR ( Amer) Est GFR (Non-Af Amer) POC Glucose (mg/dL) Random Glucose Calcium Iron 63 TIBC 289 % Saturation 22 Transferrin Ferritin 98.9 Total Bilirubin AST ALT Alkaline Phosphatase Troponin I Total Protein Albumin Globulin Albumin/Globulin Ratio Vitamin B12 Folate Urine Color Yellow Urine Appearance Clear Urine pH 5.5 Ur Specific [place] <= 1.005 Urine Protein Negative Urine Glucose (UA) Negative Urine Ketones Negative Urine Blood Large H Urine Nitrate Negative Urine Bilirubin Negative Urine Urobilinogen 0.2 Ur Leukocyte Esterase Negative Urine RBC 25 - 30 Urine WBC 0 - 2 Ur Epithelial Cells 0 - 2 Blood Type Confirm 09/03/17 09/04/17 09/04/17 22:12 00:45 05:25 WBC RBC Hgb Hct MCV MCH MCHC RDW Plt Count MPV Gran % Lymph % (Auto) [place] % (Auto) Eos % (Auto) Baso % (Auto) Gran # Lymph # (Auto) [place] # (Auto) Eos # (Auto) Baso # (Auto) Sodium 142 Potassium 4.7 Chloride 113 H Carbon Dioxide 19 L Anion Gap 14 BUN 38 H Creatinine 1.4 H Est GFR ( Amer) 44 Est GFR (Non-Af Amer) 36 POC Glucose (mg/dL) 96 Random Glucose 89 Calcium 9.0 Iron TIBC % Saturation Transferrin Ferritin Total Bilirubin 0.4 AST 31 ALT 29 Alkaline Phosphatase 64 Troponin I 0.03 D Total Protein 6.0 Albumin 3.2 Globulin 2.7 Albumin/Globulin Ratio 1.2 Vitamin B12 Folate Urine Color Urine Appearance Urine pH Ur Specific [place] Urine Protein Urine Glucose (UA) Urine Ketones Urine Blood Urine Nitrate Urine Bilirubin Urine Urobilinogen Ur Leukocyte Esterase Urine RBC Urine WBC Ur Epithelial Cells Blood Type Confirm 09/04/17 09/04/17 09/04/17 05:45 07:21 11:42 WBC 6.6 RBC 3.38 L Hgb 9.0 L Hct 27.5 L MCV 81.4 MCH 26.6 MCHC 32.7 RDW 14.7 H Plt Count 189 MPV 9.2 Gran % 66.8 Lymph % (Auto) 21.4 L [place] % (Auto) 10.6 H Eos % (Auto) 0.9 L Baso % (Auto) 0.3 Gran # 4.43 Lymph # (Auto) 1.4 [place] # (Auto) 0.7 H Eos # (Auto) 0.1 Baso # (Auto) 0.02 Sodium Potassium Chloride Carbon Dioxide Anion Gap BUN Creatinine Est GFR ( Amer) Est GFR (Non-Af Amer) POC Glucose (mg/dL) 93 150 H Random Glucose Calcium Iron TIBC % Saturation Transferrin Ferritin Total Bilirubin AST ALT Alkaline Phosphatase Troponin I Total Protein Albumin Globulin Albumin/Globulin Ratio Vitamin B12 Folate Urine Color Urine Appearance Urine pH Ur Specific [place] Urine Protein Urine Glucose (UA) Urine Ketones Urine Blood Urine Nitrate Urine Bilirubin Urine Urobilinogen Ur Leukocyte Esterase Urine RBC Urine WBC Ur Epithelial Cells Blood Type Confirm Attending/Attestation - Attestation I have personally seen and examined this patient.: Yes I have fully participated in the care of the patient.: Yes I have reviewed all pertinent clinical information: Yes Notes (Text): 09/04/17 17:41 Medical record note made by the resident after discussion with my direction and input after the patient was personally seen and examined by me. I have reviewed the chart and agree that the record accurately reflects by personal performance of the history, physical exam, data review, and medical decision-making, in the course for the patient. I have also personally directed the plan of care. 82 yrs old F with PMH of DM.HTN is admitted with change of mental status , patient was having dysarthia and was also transiently aphasic, finger stick sugar in ER was found to 43.Patient symptoms has improved after D 50 w.there is no focal deficit, CT scan of head is negative.Change of mental status is likely due to hypoglycemia.We will monitor blood sugars and Neuro check.We will hold lantus and oral hypoglycemic.There is no evidence of infection at this time.We will also get Neurology evaluation. Chest pain is atypical, EKG is negative for ischemic changes.We will get serial tropnins.We will get cardiology consult. Management plan was discussed in detail with patient and family. Education was provided.
[2017-09-03] MEDS ORDERED: Albuterol-Ipratrop 3 mg / 0.5 (3 ml) UD IH PRN (15:30)
--- NOTE | 2017-09-03 15:37 | CT ---
PROCEDURE: CT Angiography of the neck with contrast HISTORY: cva COMPARISON: None available. TECHNIQUE: Contiguous axial images of the neck were obtained from the level of the skull-base to the superior mediastinum in the arteriographic phase of enhancement. Coronal and sagittal reformats or also generated. IV contrast dose: Radiation Dose - DLP: mGy-cm This CT exam was performed using one or more of the following dose reduction techniques: Automated exposure control, adjustment of the mA and/or kV according to patient size, and/or use of iterative reconstruction technique. FINDINGS: RIGHT CAROTID ARTERIES: Severe tortuosity of the internal carotid artery without stenosis. The carotid arteries nearly touch in the midline within the retropharyngeal space. LEFT CAROTID ARTERIES: Severe tortuosity of the internal carotid artery without stenosis VERTEBRAL ARTERIES: Right Vertebral Artery: Normal. Left Vertebral Artery: Normal. OTHER FINDINGS: None. IMPRESSION: Tortuosity of the internal carotids without stenosis CT Angiography of the Brain. HISTORY: cva COMPARISON: None available. TECHNIQUE: CT angiography of the intracranial arteries was performed. Coronal and sagittal maximum intensity projection reformated images were generated. This CT exam was performed using one or more of the following dose reduction techniques: Automated exposure control, adjustment of the mA and/or kV according to patient size, and/or use of iterative reconstruction technique. FINDINGS: INTERNAL CEREBRAL ARTERIES: Unremarkable. The skull base, petrous, cavernous and supraclinoid segments are bilaterally widely patent. ANTERIOR CEREBRAL ARTERIES: Unremarkable. A1 and A2 segments are widely patent. Smaller distal branches unremarkable, as visualized. MIDDLE CEREBRAL ARTERIES: Unremarkable. M1 and M2 segments are widely patent. Perisylvian branches grossly symmetric. POSTERIOR CIRCULATION: Basilar Artery: Unremarkable. Distal Vertebral Arteries: Unremarkable. Posterior Cerebral Arteries: Unremarkable. Posterior Inferior Cerebellar Arteries: Unremarkable. ANEURYSM/ VASCULAR MALFORMATIONS: None. OTHER FINDINGS: None. IMPRESSION: Unremarkable CT Angiography of the Brain.
[2017-09-03] MEDS: Insulin Lispro (humaLOG) LOW Coverage SC SCH ×2 (17:40→22:22)
[2017-09-03 20:00] LABS: IRON 63 ug/dL (45-180)
[2017-09-03 20:09] LABS: % IRON SATURATION 22 % (20-55); TOTAL IRON BINDING CAPACITY 289 ug/dL (265-497); TROPONIN I 0.01 ng/mL
[2017-09-03] MEDS ORDERED: Pneumococcal 23-Valent Vaccine IM ONE (21:13)
--- NOTE | 2017-09-03 22:22 | CARD ---
APPROVED REPORT EKG Measurement Heart [id number] <Conclusion> Normal sinus rhythm Normal ECG
[2017-09-04 06:28] LABS: BASO # 0.02 K/mm3 (0.0-2.0); BASO % 0.3 % (0.0-3.0); EOS # 0.1 (0.0-0.7); EOS % 0.9 % (1.5-5.0); GRAN # 4.43 (1.4-6.5); GRAN % 66.8 % (50.0-68.0); LYMPH # 1.4 (1.2-3.4); LYMPH % 21.4 % (22.0-35.0); MEAN CELL VOLUME 81.4 fl (80.0-105.0); MEAN CORPUSCULAR HEMOGLOBIN 26.6 pg (25.0-35.0); MEAN CORPUSCULAR HGB CONC 32.7 g/dl (31.0-37.0); MEAN PLATELET VOLUME 9.2 fl (7.0-11.0); MONO # 0.7 (0.1-0.6); MONO % 10.6 % (1.0-6.0); RBC 3.38 10^6/uL (3.5-6.1); RED CELL DISTRIBUTION WIDTH 14.7 % (11.5-14.5); WHITE BLOOD COUNT 6.6 10^3/ul (4.5-11.0)
[2017-09-04 06:28] LABS: PH,URINE 5.5 (4.7-8.0); URINE BILIRUBIN NEGATIVE (NEGATIVE); URINE BLOOD LARGE (NEGATIVE); URINE GLUCOSE (UA) NEGATIVE (NEGATIVE); URINE LEUKOCYTE ESTERASE NEGATIVE Leu/uL (NEGATIVE); URINE PROTEIN NEGATIVE mg/dL (<30 mg/dL); URINE UROBILINOGEN 0.2 E.U./dL (<1 E.U./dL)
[2017-09-04 06:32] LABS: URINE APPEARANCE CLEAR (CLEAR); URINE COLOR YELLOW (YELLOW)
[2017-09-04 06:39] LABS: URINE EPITHELIAL CELLS 0 - 2 /hpf (0-5); URINE WBC 0 - 2 /hpf (0-6)
[2017-09-04 06:43] LABS: URINE RBC 25 - 30 /hpf (0-2)
[2017-09-04 07:37] LABS: ALB/GLOB RATIO 1.2 (1.1-1.8); ALBUMIN 3.2 g/dL (3.0-4.8)
[2017-09-04] MEDS: Insulin Lispro (humaLOG) LOW Coverage SC SCH ×4 (08:15→23:05)
[2017-09-04] MEDS: CARVEDILOL 20 MG PO SCH (10:00)
--- NOTE | 2017-09-04 10:10 | CP.PCM.CON ---
History of Present Illness - History of Present Illness History of Present Illness: Neurology Consult Note - Dr. Danielle 82 F with a PMHx of HTN, HLD, DM, and asthma presented to [facility] ED with complaints of Right sided weakness, difficulty speaking and chest discomfort. Pt awoke yesterday with symptoms and was unable to move her right side specifically. Last known time of usual state of health was approximately 10 pm the previous night. Patient also had associated chest discomfort described as a pressure like sensation in the midsternal region that did not radiate, rated at a 10/10 and was alleviated once she arrived in ED. Pt admitted to her blood glucose reading fluctuating for the past couple of weeks. Of note, she arrived to the ED with a low bg in the 40s, as she did not eat breakfast on account of her symptoms. Pt was seen and examined at bedside. Pt is able to move all extremities, no facial droop, no expressive aphasia. Pt denied fever, chills, shortness of breath, chest pains, abdominal pains, nausea, vomiting, diarrhea, constipation, dysuria. Patient ambulates with a walker and completes ADLs. She denied any recent travel/sick contacts. PMHx: HTN, HLD, DM, asthma PSHx: cholecystectomy 15years ago, L knee arthroplasty 2005 SHx: denies tobacco, EtOH, drug use; lives at home with her son; retired FamHx: Noncontributory Meds: MAR reviewed Allergies: NKDA Review of Systems - Review of Systems Review of Systems: as per HPI otherwise negative Past Patient History - Infectious Disease Hx of Infectious Diseases: None - Past Social History Smoking Status: Never Smoked - CARDIAC Hx Cardiac Disorders: Yes Hx Hypercholesterolemia: Yes Hx Hypertension: Yes Hx Peripheral Vascular Disease: Yes (BLOOD CLOT AFTER L KNEE SX REPLACEMENT) - PULMONARY Hx Respiratory Disorders: Yes Hx Asthma: Yes Hx Emphysema: Yes Hx Sleep Apnea: Yes (USES CPAP AT HOME) - NEUROLOGICAL Hx Neurological Disorder: No - HEENT Hx HEENT Problems: No - RENAL Hx Chronic Kidney Disease: No - ENDOCRINE/METABOLIC Hx Endocrine Disorders: Yes Hx Diabetes Mellitus Type 2: Yes - HEMATOLOGICAL/ONCOLOGICAL Hx Blood Disorders: No - INTEGUMENTARY Hx Dermatological Problems: Yes (RIGHT 2ND TOE BLACKENED,CALLOUSED AREA.GOES TO DR. FRANCO) - MUSCULOSKELETAL/RHEUMATOLOGICAL Hx Musculoskeletal Disorders: Yes Hx Falls: Yes Hx Unsteady Gait: Yes (WALKER) - GASTROINTESTINAL Hx Gastrointestinal Disorders: No - GENITOURINARY/GYNECOLOGICAL Hx Genitourinary Disorders: No - PSYCHIATRIC Hx Psychophysiologic Disorder: No Hx Substance Use: No - SURGICAL HISTORY Hx Surgeries: Yes Hx Cholecystectomy: Yes Hx Orthopedic Surgery: Yes (Left Knee Replacement) - ANESTHESIA Hx Anesthesia: Yes Hx Anesthesia Reactions: No Hx Malignant Hyperthermia: No Meds Allergies/Adverse Reactions: Allergies Allergy/AdvReac Type Severity Reaction Status Date / Time No Known Allergies Allergy Verified 09/03/17 15:35 - Medications Medications: Current Medications Albuterol/Ipratropium (Duoneb 3 Mg/0.5 Mg (3 Ml) Ud) 3 ml IH Q6H PRN PRN Reason: Shortness of Breath Aspirin (Ecotrin) 81 mg PO DAILY [facility] Atorvastatin Calcium (Lipitor) 20 mg PO HS [facility] Last Admin: 09/03/17 22:18 Dose: 20 mg Doxazosin Mesylate (Cardura) 2 mg PO DAILY [facility] Famotidine (Pepcid) 20 mg PO 1000,2200 [facility] Last Admin: 09/03/17 22:18 Dose: 20 mg Gabapentin (Neurontin) 100 mg PO TID [facility] PRN Reason: Protocol Last Admin: 09/03/17 18:51 Dose: 100 mg Heparin Sodium (Porcine) (Heparin) 5,000 units SC Q8H [facility] PRN Reason: Protocol Last Admin: 09/04/17 08:19 Dose: 5,000 units Hydralazine HCl (Apresoline) 10 mg IVP Q6 PRN PRN Reason: Systolic Blood Pressure Insulin Human Lispro (Humalog Low) 0 units SC ACHS [facility] PRN Reason: Protocol Last Admin: 09/04/17 08:15 Dose: Not Given Nifedipine (Procardia Xl) 60 mg PO DAILY [facility] Carvedilol [Coreg Cr ] 20 Mg (Non- Formulary) 20 mg PO DAILY [facility] Physical Exam - Constitutional Appears: No Acute Distress Additional comments: morbidly obese - Head Exam Head Exam: ATRAUMATIC, NORMAL INSPECTION, NORMOCEPHALIC - Eye Exam Eye Exam: EOMI, Normal appearance, PERRL Pupil Exam: NORMAL ACCOMODATION, PERRL - ENT Exam ENT Exam: Mucous Membranes Moist, Normal Exam - Neck Exam Neck exam: Positive for: Normal Inspection - Respiratory Exam Respiratory Exam: Clear to Auscultation Bilateral, NORMAL BREATHING PATTERN - Cardiovascular Exam Cardiovascular Exam: REGULAR RHYTHM, +S1, +S2 - GI/Abdominal Exam GI & Abdominal Exam: Normal Bowel Sounds, Soft. absent: Tenderness - Neurological Exam Neurological exam: Alert, CN II-XII Intact, Oriented x3, Reflexes Normal - Psychiatric Exam Psychiatric exam: Normal Affect, Normal Mood - Skin Skin Exam: Dry, Intact, Normal Color, Warm Results - Vital Signs Recent Vital Signs: Last Vital Signs Temp 99.2 F 09/04/17 06:00 Pulse 81 09/04/17 06:00 Resp 20 09/04/17 06:00 BP 148/45 L 09/04/17 06:00 Pulse Ox 96 09/04/17 06:00 - Labs Result Diagrams: 09/04/17 05:45 09/04/17 05:25 Labs: Laboratory Results - last 24 hr 09/03/17 09/03/17 09/03/17 14:39 15:11 15:24 WBC RBC Hgb Hct MCV MCH MCHC RDW Plt Count MPV Gran % Lymph % (Auto) [place] % (Auto) Eos % (Auto) Baso % (Auto) Gran # Lymph # (Auto) [place] # (Auto) Eos # (Auto) Baso # (Auto) Sodium Potassium Chloride Carbon Dioxide Anion Gap BUN Creatinine Est GFR ( Amer) Est GFR (Non-Af Amer) POC Glucose (mg/dL) 94 Random Glucose Calcium Iron TIBC % Saturation Total Bilirubin AST ALT Alkaline Phosphatase Troponin I Total Protein Albumin Globulin Albumin/Globulin Ratio Urine Color Urine Appearance Urine pH Ur Specific [place] Urine Protein Urine Glucose (UA) Urine Ketones Urine Blood Urine Nitrate Urine Bilirubin Urine Urobilinogen Ur Leukocyte Esterase Urine RBC Urine WBC Ur Epithelial Cells Blood Type A POSITIVE Blood Type Confirm A POSITIVE Antibody Screen Negative BBK History Checked No verified bt 09/03/17 09/03/17 09/03/17 17:39 19:35 19:35 WBC RBC Hgb Hct MCV MCH MCHC RDW Plt Count MPV Gran % Lymph % (Auto) [place] % (Auto) Eos % (Auto) Baso % (Auto) Gran # Lymph # (Auto) [place] # (Auto) Eos # (Auto) Baso # (Auto) Sodium Potassium Chloride Carbon Dioxide Anion Gap BUN Creatinine Est GFR ( Amer) Est GFR (Non-Af Amer) POC Glucose (mg/dL) 69 Random Glucose Calcium Iron 63 TIBC 289 % Saturation 22 Total Bilirubin AST ALT Alkaline Phosphatase Troponin I 0.01 Total Protein Albumin Globulin Albumin/Globulin Ratio Urine Color Urine Appearance Urine pH Ur Specific [place] Urine Protein Urine Glucose (UA) Urine Ketones Urine Blood Urine Nitrate Urine Bilirubin Urine Urobilinogen Ur Leukocyte Esterase Urine RBC Urine WBC Ur Epithelial Cells Blood Type Blood Type Confirm Antibody Screen BBK History Checked 09/03/17 09/03/17 09/04/17 21:49 22:12 00:45 WBC RBC Hgb Hct MCV MCH MCHC RDW Plt Count MPV Gran % Lymph % (Auto) [place] % (Auto) Eos % (Auto) Baso % (Auto) Gran # Lymph # (Auto) [place] # (Auto) Eos # (Auto) Baso # (Auto) Sodium Potassium Chloride Carbon Dioxide Anion Gap BUN Creatinine Est GFR ( Amer) Est GFR (Non-Af Amer) POC Glucose (mg/dL) 96 Random Glucose Calcium Iron TIBC % Saturation Total Bilirubin AST ALT Alkaline Phosphatase Troponin I 0.03 D Total Protein Albumin Globulin Albumin/Globulin Ratio Urine Color Yellow Urine Appearance Clear Urine pH 5.5 Ur Specific [place] <= 1.005 Urine Protein Negative Urine Glucose (UA) Negative Urine Ketones Negative Urine Blood Large H Urine Nitrate Negative Urine Bilirubin Negative Urine Urobilinogen 0.2 Ur Leukocyte Esterase Negative Urine RBC 25 - 30 Urine WBC 0 - 2 Ur Epithelial Cells 0 - 2 Blood Type Blood Type Confirm Antibody Screen BBK History Checked 09/04/17 09/04/17 09/04/17 05:25 05:45 07:21 WBC 6.6 RBC 3.38 L Hgb 9.0 L Hct 27.5 L MCV 81.4 MCH 26.6 MCHC 32.7 RDW 14.7 H Plt Count 189 MPV 9.2 Gran % 66.8 Lymph % (Auto) 21.4 L [place] % (Auto) 10.6 H Eos % (Auto) 0.9 L Baso % (Auto) 0.3 Gran # 4.43 Lymph # (Auto) 1.4 [place] # (Auto) 0.7 H Eos # (Auto) 0.1 Baso # (Auto) 0.02 Sodium 142 Potassium 4.7 Chloride 113 H Carbon Dioxide 19 L Anion Gap 14 BUN 38 H Creatinine 1.4 H Est GFR ( Amer) 44 Est GFR (Non-Af Amer) 36 POC Glucose (mg/dL) 93 Random Glucose 89 Calcium 9.0 Iron TIBC % Saturation Total Bilirubin 0.4 AST 31 ALT 29 Alkaline Phosphatase 64 Troponin I Total Protein 6.0 Albumin 3.2 Globulin 2.7 Albumin/Globulin Ratio 1.2 Urine Color Urine Appearance Urine pH Ur Specific [place] Urine Protein Urine Glucose (UA) Urine Ketones Urine Blood Urine Nitrate Urine Bilirubin Urine Urobilinogen Ur Leukocyte Esterase Urine RBC Urine WBC Ur Epithelial Cells Blood Type Blood Type Confirm Antibody Screen BBK History Checked Assessment & Plan - Assessment and Plan (Free Text) Assessment: 82 F with a PMHx of HTN, HLD, DM, and asthma presented to [facility] ED with complaints of Right sided weakness, difficulty speaking and chest discomfort. Pt had low bg in the 40s upon admission, CT head unremarkable and CTA head and neck unremarkable as well, likely TIA. Pt had borderline trops that uptrended, cardiology consulted, fu with reccs and echo. We will obtain an MRI for further evaluation. Continue medical management as per primary. Continue Asa, bp and bg control. PT/OT/ST
[2017-09-04] MEDS: NIFEdipine 60 mg ER Tab PO SCH (10:22)
[2017-09-04 13:43] LABS: FOLATE > 20.0 ng/mL
--- NOTE | 2017-09-04 21:04 | CON ---
DATE: 09/04/2017 INDICATIONS: Aphasia, right-sided weakness, rule out stroke, rule out hypoglycemia. HISTORY OF PRESENT ILLNESS: This is an 82-year-old woman known to me with a history of hypertension, diabetes, hyperlipidemia, and COPD, who developed aphasia and right-sided weakness yesterday. She was discovered by her son unable to speak and with weakness, especially on the right side. In the emergency room, she was found to have hypoglycemia. This was treated. Her symptoms improved and resolved. This morning, she has normal speech and does not have right-sided weakness, although she does feel weak and tired overall. There was a brief episode of chest pain, but that resolved. She has chronic dyspnea on exertion. There is no orthopnea, PND, syncope, presyncope, lightheadedness, dizziness, vertigo, palpitation, edema, claudication, fever, chills, cough, sputum production, hemoptysis, abdominal pain, nausea, vomiting, diarrhea, constipation, or melena. PAST MEDICAL HISTORY: Notable for hypertension, diabetes, hyperlipidemia, COPD, asthma, sleep apnea, gallbladder surgery, left total knee replacement. There is no history of myocardial infarction, angina, rheumatic fever, congestive heart failure, stroke, TIA, or gout. MEDICATIONS: At the time of admission, include Aldactone, aspirin, Lipitor, Edarbi, Coreg CR, Arnuity, Anoro, Neurontin, insulin, Flomax, Prandin, Cardura, and nifedipine. ALLERGIES: THERE ARE NO MEDICATION ALLERGIES. SOCIAL HISTORY: She lives at home. She does not smoke. She does not drink alcohol significantly. She lives with her son. She is ambulatory. FAMILY HISTORY: Noncontributory. REVIEW OF SYSTEMS: A 10-point review of systems is otherwise unremarkable except as noted above. PHYSICAL EXAMINATION: GENERAL: She is a well-developed elderly woman, lying in bed, in no acute distress. VITAL SIGNS: On telemetry, she is in sinus rhythm. She is afebrile. Blood pressure 148/45, pulse 81, respirations 18-20, and O2 sat 96%-98% on room air. HEENT: Reveals no neck vein distention, thyromegaly, or carotid bruits. Mucous membranes moist. Conjunctivae pink. NECK: Supple. LUNGS: Lung aguilar clear with diminished breath sounds at the bases. HEART: Revealed normal first and second heart sounds, which were somewhat distend. PMI not palpable. ABDOMEN: Obese, soft, benign. No mass, organomegaly, tenderness, rebound, or guarding. No CVA tenderness. No palpable abdominal aortic aneurysm. EXTREMITIES: Reveal no cyanosis, clubbing, or edema. NEUROLOGIC: She is awake, alert, and oriented. PSYCHIATRIC: Normal as to mood and affect. SKIN: Warm and dry. No rash or cellulitis. LABORATORY AND IMAGING: EKG demonstrates regular sinus rhythm with Q-wave in III, it is basically normal and unchanged from a prior EKG. Chest x-ray reveals underpenetrated film, possible CHF, etc. See full report. CT scan of the head reveals mild age-related neurodegenerative changes, etc. A CT angiogram of the head and neck reveals an unremarkable study. White count normal, platelet count normal, hemoglobin 9, hematocrit 27.5. PT/INR and PTT unremarkable. Electrolytes notable for potassium of 5.2, normal sodium, carbon dioxide 19, chloride 113, BUN 53, creatinine 1.7. Initial blood sugar of 55, repeat 44, subsequently 99, 96. Repeat potassium 4.7. Repeat creatinine 1.4. LFTs unremarkable. Troponin less than 0.01. BNP 169. Cholesterol 114, LDL 44, HDL 52, triglycerides 52. Troponins negative x4. Urinalysis noted. IMPRESSION AND PLAN: Lara Maxwell is an 82-year-old woman admitted with neurologic symptoms including aphasia and right-sided weakness, which seemed to have improved with treatment of hypoglycemia. Her symptoms have resolved this morning. She did have mild headache and mild chest pain briefly. No evidence of ischemia on her EKG. No arrhythmia on telemetry. Enzymes are negative x4. At this point, she is on telemetry. She is having a neurologic evaluation. I will order postural vital signs. I will continue her medications including nifedipine, Neurontin, Lipitor, aspirin, Coreg, Cardura, aspirin. She is also getting hydralazine. We will monitor blood sugars, monitor I and O, check stool for occult blood. She can be out of bed to a chair and ambulate with assistance. I will follow along with you. I will make additional recommendations based on her clinical course. Tom Call MD [facility] # [phone] HODA
--- NOTE | 2017-09-04 21:13 | CP.PCM.PN ---
Subjective - Date & Time of Evaluation Date of Evaluation: 09/04/17 Time of Evaluation: 07:45 - Subjective Subjective: Patient seen and examined this AM. Patient indicates improved symptoms from mornign prior where she was unable to speak and had weakness of extremity. Patient reports improved chest pressure. Patient denies shortness of breath, weakness, numbness, tingling, inability to speak. Objective - Vital Signs/Intake and Output Vital Signs (last 24 hours): Temp Pulse Resp BP Pulse Ox 98 F 83 18 169/70 H 96 09/04/17 18:00 09/04/17 18:00 09/04/17 18:00 09/04/17 18:00 09/04/17 06:00 Intake and Output: 09/04/17 09/05/17 18:59 06:59 Intake Total 300 Output Total 800 Balance -500 - Medications Medications: Current Medications Albuterol/Ipratropium (Duoneb 3 Mg/0.5 Mg (3 Ml) Ud) 3 ml IH Q6H PRN PRN Reason: Shortness of Breath Aspirin (Ecotrin) 81 mg PO DAILY [facility] Last Admin: 09/04/17 10:22 Dose: 81 mg Atorvastatin Calcium (Lipitor) 20 mg PO HS [facility] Last Admin: 09/03/17 22:18 Dose: 20 mg Doxazosin Mesylate (Cardura) 2 mg PO DAILY [facility] Last Admin: 09/04/17 10:22 Dose: 2 mg Famotidine (Pepcid) 20 mg PO 1000,2200 [facility] Last Admin: 09/04/17 10:22 Dose: 20 mg Gabapentin (Neurontin) 100 mg PO TID [facility] PRN Reason: Protocol Last Admin: 09/04/17 17:45 Dose: 100 mg Heparin Sodium (Porcine) (Heparin) 5,000 units SC Q8H [facility] PRN Reason: Protocol Last Admin: 09/04/17 17:44 Dose: 5,000 units Hydralazine HCl (Apresoline) 10 mg IVP Q6 PRN PRN Reason: Systolic Blood Pressure Insulin Human Lispro (Humalog Low) 0 units SC ACHS [facility] PRN Reason: Protocol Last Admin: 09/04/17 17:45 Dose: Not Given Nifedipine (Procardia Xl) 60 mg PO DAILY [facility] Last Admin: 09/04/17 10:22 Dose: 60 mg Carvedilol [Coreg Cr ] 20 Mg (Non- Formulary) 20 mg PO DAILY [facility] Last Admin: 09/04/17 10:00 Dose: Not Given Tamsulosin HCl (Flomax) 0.4 mg PO DAILY [facility] Last Admin: 09/04/17 12:59 Dose: 0.4 mg - Labs Labs: 09/04/17 05:45 09/04/17 05:25 PT 11.2 SECONDS (9.4-12.5) 09/03/17 12:25 INR 0.97 (0.93-1.08) 09/03/17 12:25 APTT 31.8 Seconds (25.1-36.5) 09/03/17 12:25 - Constitutional Appears: No Acute Distress - Head Exam Head Exam: ATRAUMATIC, NORMAL INSPECTION - Eye Exam Eye Exam: EOMI, PERRL - Neck Exam Neck Exam: Full ROM - Respiratory Exam Respiratory Exam: Clear to Ausculation Bilateral, NORMAL BREATHING PATTERN - Cardiovascular Exam Cardiovascular Exam: REGULAR RHYTHM, +S1, +S2 - Extremities Exam Extremities Exam: Normal Capillary Refill. absent: Calf Tenderness, Tenderness - Neurological Exam Neurological Exam: Alert, Awake, CN II-XII Intact, Oriented x3. absent: Motor Sensory Deficit - Psychiatric Exam Psychiatric exam: Normal Affect, Normal Mood - Skin Skin Exam: Dry, Warm Assessment and Plan - Assessment and Plan (Free Text) Assessment: 82yo female PMHx HTN, HLD, DM, and asthma [place] [facility] [place] and aphasia. Patient was found to be hypoglycemic in ED. CT scan of the head is negative for acute intracranial abnormalities. Patient to be evaluated by neurology and cardiology. Plan: AMS - resolved -Etiology: Likeyly hypoglycemic episode -Head CT: Mild age related neuro degenerative changes are appreciated which appear age-appropriate. No definite acute intracranial findings by standard CT criteria. -Head CTA: unremarkable -HoB above 45 degrees -Neuro Consulted - Obtain an MRI for further evaluation. - Continue medical management as per primary. Continue Asa, bp and bg control. PT/OT/ST Hx of HTN -continue home meds -Hydralazine prn -Cardio Dr Call consulted - check postural vital signs - monitor I and O - stool occult blood Hx of DM2 -RISS low -Accucheck q4 in light of hypoglycemia -HgbA1c is 6.9 Hx of HLD -continue home med Hx of asthma -Duoneb prn GI ppx: pepcid DVT ppx: Heparin Case and plan discussed with attending
[2017-09-05 07:15] LABS: BASO # 0.03 K/mm3 (0.0-2.0); BASO % 0.4 % (0.0-3.0); EOS # 0.1 (0.0-0.7); EOS % 1.2 % (1.5-5.0); GRAN # 4.25 (1.4-6.5); GRAN % 62.3 % (50.0-68.0); HEMOGLOBIN 9.2 g/dL (12.0-16.0); LYMPH # 1.7 (1.2-3.4); LYMPH % 24.8 % (22.0-35.0); MEAN CELL VOLUME 81.5 fl (80.0-105.0); MEAN CORPUSCULAR HEMOGLOBIN 26.2 pg (25.0-35.0); MEAN CORPUSCULAR HGB CONC 32.2 g/dl (31.0-37.0); MEAN PLATELET VOLUME 9.2 fl (7.0-11.0); MONO # 0.8 (0.1-0.6); MONO % 11.3 % (1.0-6.0); RBC 3.51 10^6/uL (3.5-6.1); RED CELL DISTRIBUTION WIDTH 14.6 % (11.5-14.5); WHITE BLOOD COUNT 6.8 10^3/ul (4.5-11.0)
[2017-09-05 07:39] LABS: ALB/GLOB RATIO 1.3 (1.1-1.8); ALBUMIN 3.6 g/dL (3.0-4.8); CALCIUM 9.1 mg/dL (8.4-10.5)
[2017-09-05] MEDS: Insulin Lispro (humaLOG) LOW Coverage SC SCH ×4 (08:36→21:35)
[2017-09-05] MEDS: NIFEdipine 60 mg ER Tab PO SCH (10:06)
[2017-09-05] MEDS: CARVEDILOL 20 MG PO SCH (10:07)
--- NOTE | 2017-09-05 13:33 | CARD ---
APPROVED REPORT EXAM: Two-dimensional and M-mode echocardiogram with Doppler and color Doppler. INDICATION 2D DIMENSIONS IVSd1.0 (0.7-1.1cm)LVDd5.2 (3.9-5.9cm) PWd1.3 (0.7-1.1cm)LVDs3.4 (2.5-4.0cm) FS (%) 34.6 %LVEF (%)63.3 (>50%) M-Mode DIMENSIONS Left Atrium (MM)3.60 (2.5-4.0cm)Aortic Root3.10 (2.2-3.7cm) Aortic Cusp Exc.1.70 (1.5-2.0cm) Aortic Valve AoV Peak Tlcdwtcj551.0cm/Malika Peak GR.20mmHg Mitral Valve MV E Zizunqvk47.1cm/sMV A Kewxjoer108.0cm/sE/A ratio0.8 TDI Lateral E' Peak V8.77cm/sMedial E' Peak V6.43cm/sE/Lateral E'11.2 E/Medial E'15.3 Tricuspid Valve TR Peak [id number]/sRAP [id number] Peak Gr.31mmHg [id number] LEFT VENTRICLE The left ventricle is normal size. There is borderline concentric left ventricular hypertrophy. The left ventricular function is normal. The left ventricular ejection fraction is within the normal range. There is normal LV segmental wall motion. Transmitral Doppler flow pattern is Grade I-abnormal relaxation pattern. RIGHT VENTRICLE The right ventricle is normal size. There is normal right ventricular wall thickness. The right ventricular systolic function is normal. ATRIA The left atrium size is normal. The right atrium size is normal. AORTIC VALVE The aortic valve is moderately sclerotic. There is trace aortic regurgitation. MITRAL VALVE The mitral valve is mildly thickened. There is no mitral valve regurgitation noted. TRICUSPID VALVE There is mild tricuspid regurgitation. There is mild pulmonary hypertension. PULMONIC VALVE There is mild pulmonic valvular regurgitation. GREAT VESSELS The aortic root is normal in size. PERICARDIAL EFFUSION There is a trace loculated anterior pericardial effusion. <Conclusion> The left ventricular function is normal. The left ventricular ejection fraction is within the normal range. There is normal LV segmental wall motion. Transmitral Doppler flow pattern is Grade I-abnormal relaxation pattern. There is mild tricuspid regurgitation. There is mild pulmonary hypertension.
--- NOTE | 2017-09-05 14:34 | CP.PCM.PN ---
<Anne Rogers - Last Filed: 09/05/17 14:41> Subjective - Date & Time of Evaluation Date of Evaluation: 09/05/17 Time of Evaluation: 14:33 - Subjective Subjective: Internal Medicine Progress Note: Patient seen and examined at bedside. Per nursing, no acute events overnight. Patient for echo and MRI today. Denies headaches, dizziness, cp, palpitations, sob, abdominal pain, urinary symptoms. Objective - Vital Signs/Intake and Output Vital Signs (last 24 hours): Temp Pulse Resp BP Pulse Ox 98.0 F 81 20 143/50 L 96 09/05/17 12:00 09/05/17 12:00 09/05/17 12:00 09/05/17 12:00 09/04/17 06:00 Intake and Output: 09/05/17 09/05/17 06:59 18:59 Intake Total 0 Output Total 0 Balance 0 - Medications Medications: Current Medications Albuterol/Ipratropium (Duoneb 3 Mg/0.5 Mg (3 Ml) Ud) 3 ml IH Q6H PRN PRN Reason: Shortness of Breath Aspirin (Ecotrin) 81 mg PO DAILY [facility] Last Admin: 09/05/17 10:05 Dose: 81 mg Atorvastatin Calcium (Lipitor) 20 mg PO HS [facility] Last Admin: 09/04/17 21:33 Dose: 20 mg Doxazosin Mesylate (Cardura) 2 mg PO DAILY [facility] Last Admin: 09/05/17 10:06 Dose: 2 mg Famotidine (Pepcid) 20 mg PO 1000,2200 [facility] Last Admin: 09/05/17 10:06 Dose: 20 mg Gabapentin (Neurontin) 100 mg PO TID [facility] PRN Reason: Protocol Last Admin: 09/05/17 10:06 Dose: 100 mg Heparin Sodium (Porcine) (Heparin) 5,000 units SC Q8H [facility] PRN Reason: Protocol Last Admin: 09/05/17 08:36 Dose: 5,000 units Hydralazine HCl (Apresoline) 10 mg IVP Q6 PRN PRN Reason: Systolic Blood Pressure Last Admin: 09/04/17 21:29 Dose: 10 mg Insulin Human Lispro (Humalog Low) 0 units SC ACHS [facility] PRN Reason: Protocol Last Admin: 09/05/17 12:49 Dose: 1 units Nifedipine (Procardia Xl) 60 mg PO DAILY [facility] Last Admin: 09/05/17 10:06 Dose: 60 mg Carvedilol [Coreg Cr ] 20 Mg (Non- Formulary) 20 mg PO DAILY [facility] Last Admin: 09/05/17 10:07 Dose: Not Given Tamsulosin HCl (Flomax) 0.4 mg PO DAILY [facility] Last Admin: 09/05/17 10:06 Dose: 0.4 mg - Labs Labs: 09/05/17 06:30 09/05/17 06:30 PT 11.2 SECONDS (9.4-12.5) 09/03/17 12:25 INR 0.97 (0.93-1.08) 09/03/17 12:25 APTT 31.8 Seconds (25.1-36.5) 09/03/17 12:25 - Additional Findings Additional findings: - Constitutional Appears: No Acute Distress - Head Exam Head Exam: ATRAUMATIC, NORMAL INSPECTION - Eye Exam Eye Exam: EOMI, PERRL - Neck Exam Neck Exam: Full ROM - Respiratory Exam Respiratory Exam: Clear to Ausculation Bilateral, NORMAL BREATHING PATTERN - Cardiovascular Exam Cardiovascular Exam: REGULAR RHYTHM, +S1, +S2 - Extremities Exam Extremities Exam: Normal Capillary Refill. absent: Calf Tenderness, Tenderness - Neurological Exam Neurological Exam: Alert, Awake, CN II-XII Intact, Oriented x3. absent: Motor Sensory Deficit - Psychiatric Exam Psychiatric exam: Normal Affect, Normal Mood - Skin Skin Exam: Dry, Warm Assessment and Plan - Assessment and Plan (Free Text) Assessment: 82yo female PMHx HTN, HLD, DM, and asthma presents [place] [facility] [place] for right sided weakness and aphasia. Patient was found to be hypoglycemic in ED. CT scan of the head is negative for acute intracranial abnormalities. Patient to be evaluated by neurology and cardiology. Plan: AMS - resolved -Etiology: Likely hypoglycemic episode -Head CT: Mild age related neuro degenerative changes are appreciated which appear age-appropriate. No definite acute intracranial findings by standard CT criteria. -Head CTA: unremarkable -HoB above 45 degrees -Neuro Consulted -F/U MRI and echo -Continue medical management as per primary. Continue Asa, bp and bg control. PT /OT/ST -Likely D/C tomorrow Hx of HTN -continue home meds -Hydralazine prn -Cardio Dr Call consulted -F/U orthostatics Hx of DM2 -RISS low -Accucheck q4 in light of hypoglycemia -HgbA1c is 6.9 Hx of HLD -continue Lipitor 20mg HS Hx of asthma -Duoneb prn GI ppx: Pepcid DVT ppx: Heparin Case and plan discussed with attending, Dr Alvarado <Lori Alvarado - Last Filed: 09/05/17 15:56> Objective - Vital Signs/Intake and Output Vital Signs (last 24 hours): Temp Pulse Resp BP Pulse Ox 98.0 F 74 20 143/50 L 96 09/05/17 12:00 09/05/17 14:00 09/05/17 12:00 09/05/17 12:00 09/04/17 06:00 Intake and Output: 09/05/17 09/05/17 06:59 18:59 Intake Total 0 Output Total 0 Balance 0 - Medications Medications: Current Medications Albuterol/Ipratropium (Duoneb 3 Mg/0.5 Mg (3 Ml) Ud) 3 ml IH Q6H PRN PRN Reason: Shortness of Breath Aspirin (Ecotrin) 81 mg PO DAILY [facility] Last Admin: 09/05/17 10:05 Dose: 81 mg Atorvastatin Calcium (Lipitor) 20 mg PO HS [facility] Last Admin: 09/04/17 21:33 Dose: 20 mg Doxazosin Mesylate (Cardura) 2 mg PO DAILY [facility] Last Admin: 09/05/17 10:06 Dose: 2 mg Famotidine (Pepcid) 20 mg PO 1000,2200 [facility] Last Admin: 09/05/17 10:06 Dose: 20 mg Gabapentin (Neurontin) 100 mg PO TID [facility] PRN Reason: Protocol Last Admin: 09/05/17 14:44 Dose: 100 mg Heparin Sodium (Porcine) (Heparin) 5,000 units SC Q8H [facility] PRN Reason: Protocol Last Admin: 09/05/17 14:44 Dose: 5,000 units Hydralazine HCl (Apresoline) 10 mg IVP Q6 PRN PRN Reason: Systolic Blood Pressure Last Admin: 09/04/17 21:29 Dose: 10 mg Insulin Human Lispro (Humalog Low) 0 units SC ACHS [facility] PRN Reason: Protocol Last Admin: 09/05/17 12:49 Dose: 1 units Nifedipine (Procardia Xl) 60 mg PO DAILY [facility] Last Admin: 09/05/17 10:06 Dose: 60 mg Carvedilol [Coreg Cr ] 20 Mg (Non- Formulary) 20 mg PO DAILY [facility] Last Admin: 09/05/17 10:07 Dose: Not Given Tamsulosin HCl (Flomax) 0.4 mg PO DAILY [facility] Last Admin: 09/05/17 10:06 Dose: 0.4 mg - Labs Labs: 09/05/17 06:30 09/05/17 06:30 PT 11.2 SECONDS (9.4-12.5) 09/03/17 12:25 INR 0.97 (0.93-1.08) 09/03/17 12:25 APTT 31.8 Seconds (25.1-36.5) 09/03/17 12:25 Attending/Attestation - Attestation I have personally seen and examined this patient.: Yes I have fully participated in the care of the patient.: Yes I have reviewed all pertinent clinical information, including history, physical exam and plan: Yes Notes (Text): I have seen and examined the patient at bedside. Agree with the above note with the following additions/ exceptions: Briefly this is 82 year old female with history of HTN, dyslipidemia, DM-2, asthma who was admitted for AMS, right sided weakness and aphasia secondary to hypoglycemia due to insulin and oral hypoglycemics. A1C is 6.9. Will hold insulin and hypoglycemics. CT head is negative. MRI and echo pending. Cardiology consult appreciated. Upon discharge patient will follow up with .
--- NOTE | 2017-09-05 14:41 | MRI ---
PROCEDURE: MRI BRAIN WITHOUT CONTRAST HISTORY: cva COMPARISON: None. TECHNIQUE: Multiplanar, multisequence MR images of the brain were obtained without intravenous contrast enhancement. FINDINGS: HEMORRHAGE: None DWI: No evidence of an acute or early subacute infarction. BRAIN PARENCHYMA: No mass effect or edema. Mild chronic microvascular changes. VENTRICLES: Unremarkable. No hydrocephalus. CRANIUM: Unremarkable. ORBITS: Grossly unremarkable. PARANASAL SINUSES/MASTOIDS: Clear VASCULAR SYSTEM: Skull base flow voids intact. OTHER FINDINGS: None. IMPRESSION: No acute finding
--- NOTE | 2017-09-05 14:53 | PN ---
DATE: 09/05/2017 SUBJECTIVE: The patient is seen lying in bed on telemetry. Her dizziness is improved. She complains of lower abdominal pain and urinary frequency. Her speech appears normal at the present time. CURRENT MEDICATIONS: Include Cardura 2 mg daily, carvedilol CR 20 mg daily, DuoNeb inhaler p.r.n., Ecotrin once daily, Flomax 0.4 mg daily, subcutaneous heparin, insulin coverage, Lipitor 20 mg daily, Neurontin 100 mg t.i.d. and Pepcid 20 mg daily, OBJECTIVE: GENERAL: She is an obese elderly woman. VITAL SIGNS: Her blood pressure is 162/50 with a pulse of 90 and sinus, respirations are 16. She is afebrile. HEENT: No JVD. CHEST: Few scattered rhonchi. HEART: PMI displaced laterally with systolic murmur left sternal border. Abdomen: Soft, obese, nontender. Normoactive bowel sounds. Mild lower quadrant tenderness is noted. EXTREMITIES: Mild cellulitic changes. No edema. DIAGNOSTIC DATA: Potassium is 4.8, BUN and creatinine are 34 and 1.6, glucose is 153. White count 6.8, hemoglobin and hematocrit is 9.2 and 28.6 with platelet count of 179,000. IMPRESSION: 1. Recent right-sided weakness and speech difficulties and now clinically improved. Symptoms appeared to have occurred in the setting of hypoglycemia. 2. History of hypertension, diabetes and hyperlipidemia. 3. Lower abdominal suprapubic discomfort to warrant further evaluation. RECOMMENDATIONS: From a cardiac standpoint, she appears stable at the present time. No evidence of dysrhythmias have been documented. Her blood pressure control is fair and this can be adjusted as needed. No specific cardiac evaluation will be planned at this time unless other symptoms ensue. We will be happy to follow along as needed. Devon Newton MD MTDD
--- NOTE | 2017-09-05 16:20 | CP.PCM.PN ---
Subjective - Date & Time of Evaluation Date of Evaluation: 09/05/17 Time of Evaluation: 16:00 - Subjective Subjective: Patient has a normal MRi brain, with no new or old strokes. However, she has 5/ 10 throbbing pain in her right leg. on exam: Diffuse generalized weakness, Cranial nerves normal. speech fluent. Gait wide based, with some right leg weakness, +2 dtr ul and ll bl. Toes downgoing . Objective - Vital Signs/Intake and Output Vital Signs (last 24 hours): Temp Pulse Resp BP Pulse Ox 98.0 F 74 20 143/50 L 96 09/05/17 12:00 09/05/17 14:00 09/05/17 12:00 09/05/17 12:00 09/04/17 06:00 Intake and Output: 09/05/17 09/05/17 06:59 18:59 Intake Total 0 Output Total 0 Balance 0 - Medications Medications: Current Medications Albuterol/Ipratropium (Duoneb 3 Mg/0.5 Mg (3 Ml) Ud) 3 ml IH Q6H PRN PRN Reason: Shortness of Breath Aspirin (Ecotrin) 81 mg PO DAILY [facility] Last Admin: 09/05/17 10:05 Dose: 81 mg Atorvastatin Calcium (Lipitor) 20 mg PO HS [facility] Last Admin: 09/04/17 21:33 Dose: 20 mg Doxazosin Mesylate (Cardura) 2 mg PO DAILY [facility] Last Admin: 09/05/17 10:06 Dose: 2 mg Famotidine (Pepcid) 20 mg PO 1000,2200 [facility] Last Admin: 09/05/17 10:06 Dose: 20 mg Gabapentin (Neurontin) 100 mg PO TID [facility] PRN Reason: Protocol Last Admin: 09/05/17 14:44 Dose: 100 mg Heparin Sodium (Porcine) (Heparin) 5,000 units SC Q8H [facility] PRN Reason: Protocol Last Admin: 09/05/17 14:44 Dose: 5,000 units Hydralazine HCl (Apresoline) 10 mg IVP Q6 PRN PRN Reason: Systolic Blood Pressure Last Admin: 09/04/17 21:29 Dose: 10 mg Insulin Human Lispro (Humalog Low) 0 units SC ACHS [facility] PRN Reason: Protocol Last Admin: 09/05/17 12:49 Dose: 1 units Nifedipine (Procardia Xl) 60 mg PO DAILY [facility] Last Admin: 09/05/17 10:06 Dose: 60 mg Carvedilol [Coreg Cr ] 20 Mg (Non- Formulary) 20 mg PO DAILY [facility] Last Admin: 09/05/17 10:07 Dose: Not Given Tamsulosin HCl (Flomax) 0.4 mg PO DAILY [facility] Last Admin: 09/05/17 10:06 Dose: 0.4 mg - Labs Labs: 09/05/17 06:30 09/05/17 06:30 PT 11.2 SECONDS (9.4-12.5) 09/03/17 12:25 INR 0.97 (0.93-1.08) 09/03/17 12:25 APTT 31.8 Seconds (25.1-36.5) 09/03/17 12:25 Assessment and Plan - Assessment and Plan (Free Text) Assessment: Patient who was called in as a code stroke, stable with no stroke seen on MRi Brain, with new rigth leg weakness that is most likely radicular in nature. plan: 1. May consider Rehab as she is a very poor walker. 2. MRI L s spine and emg as outpatient. Thank you dr. sesay
--- NOTE | 2017-09-06 07:21 | CP.PCM.PN ---
Subjective - Date & Time of Evaluation Date of Evaluation: 09/06/17 Time of Evaluation: 07:17 - Subjective Subjective: Ms. Maxwell was seen and examined at the bedside. She is alert, oriented in all spheres. She denies any headache, weakness, but complains of mild lightheaded with change of position. Encourage patient to change position slowly to alleviate lightheadedness. She further claims of mostly staying in bed due to her right knee. She also verbalize of being transferred to a rehab facility for extensive physical rehab of her right leg.She is able to follow simple commands. She has bilateral lower SCD on. There was no untoward events overnight. Objective - Vital Signs/Intake and Output Vital Signs (last 24 hours): Temp Pulse Resp BP Pulse Ox 99.0 F 80 20 130/40 L 97 09/06/17 06:00 09/06/17 06:00 09/06/17 06:00 09/06/17 06:00 09/06/17 06:00 Intake and Output: 09/06/17 09/06/17 06:59 18:59 Output Total 1000 Balance -1000 - Medications Medications: Current Medications Albuterol/Ipratropium (Duoneb 3 Mg/0.5 Mg (3 Ml) Ud) 3 ml IH Q6H PRN PRN Reason: Shortness of Breath Aspirin (Ecotrin) 81 mg PO DAILY [facility] Last Admin: 09/05/17 10:05 Dose: 81 mg Atorvastatin Calcium (Lipitor) 20 mg PO HS [facility] Last Admin: 09/05/17 22:46 Dose: 20 mg Doxazosin Mesylate (Cardura) 2 mg PO DAILY [facility] Last Admin: 09/05/17 10:06 Dose: 2 mg Famotidine (Pepcid) 20 mg PO 1000,2200 [facility] Last Admin: 09/05/17 22:46 Dose: 20 mg Gabapentin (Neurontin) 100 mg PO TID [facility] PRN Reason: Protocol Last Admin: 09/05/17 18:07 Dose: 100 mg Heparin Sodium (Porcine) (Heparin) 5,000 units SC Q8H [facility] PRN Reason: Protocol Last Admin: 09/05/17 22:47 Dose: 5,000 units Hydralazine HCl (Apresoline) 10 mg IVP Q6 PRN PRN Reason: Systolic Blood Pressure Last Admin: 09/04/17 21:29 Dose: 10 mg Insulin Human Lispro (Humalog Low) 0 units SC ACHS [facility] PRN Reason: Protocol Last Admin: 09/05/17 21:35 Dose: Not Given Nifedipine (Procardia Xl) 60 mg PO DAILY [facility] Last Admin: 09/05/17 10:06 Dose: 60 mg Carvedilol [Coreg Cr ] 20 Mg (Non- Formulary) 20 mg PO DAILY [facility] Tamsulosin HCl (Flomax) 0.4 mg PO DAILY [facility] Last Admin: 09/05/17 10:06 Dose: 0.4 mg - Labs Labs: 09/05/17 06:30 09/05/17 06:30 PT 11.2 SECONDS (9.4-12.5) 09/03/17 12:25 INR 0.97 (0.93-1.08) 09/03/17 12:25 APTT 31.8 Seconds (25.1-36.5) 09/03/17 12:25 - Constitutional Appears: No Acute Distress - Head Exam Head Exam: NORMAL INSPECTION - Neurological Exam Neurological Exam: Alert, Awake, Oriented x3 Neuro motor strength exam: Left Upper Extremity: 5, Right Upper Extremity: 5, Left Lower Extremity: 4, Right Lower Extremity: 3 Additional comments: Neurological unchanged from previous examination. Assessment and Plan (1) Radiculopathy Assessment & Plan: Case discussed with Dr. Danielle, continue all current medical, physical, and occupational therapies. She will benefit for more intense physical therapy. Recommend MRI of the lumbar spine and EMG as an outpatient. Neurology is signing off from this case, please re-consult as needed. Status: Acute
[2017-09-06 07:24] LABS: BASO # 0.01 K/mm3 (0.0-2.0); BASO % 0.1 % (0.0-3.0); EOS # 0.1 (0.0-0.7); EOS % 1.9 % (1.5-5.0); GRAN # 4.87 (1.4-6.5); GRAN % 67.4 % (50.0-68.0); HEMOGLOBIN 9.3 g/dL (12.0-16.0); LYMPH # 1.3 (1.2-3.4); LYMPH % 17.8 % (22.0-35.0); MEAN CELL VOLUME 81.4 fl (80.0-105.0); MEAN CORPUSCULAR HEMOGLOBIN 26.2 pg (25.0-35.0); MEAN CORPUSCULAR HGB CONC 32.2 g/dl (31.0-37.0); MEAN PLATELET VOLUME 9.2 fl (7.0-11.0); MONO # 0.9 (0.1-0.6); MONO % 12.8 % (1.0-6.0); RBC 3.55 10^6/uL (3.5-6.1); RED CELL DISTRIBUTION WIDTH 14.3 % (11.5-14.5); WHITE BLOOD COUNT 7.2 10^3/ul (4.5-11.0)
[2017-09-06 07:36] LABS: ALB/GLOB RATIO 1.3 (1.1-1.8); ALBUMIN 3.6 g/dL (3.0-4.8)
[2017-09-06] MEDS: Insulin Lispro (humaLOG) LOW Coverage SC SCH ×4 (08:37→22:15)
[2017-09-06] MEDS: NIFEdipine 60 mg ER Tab PO SCH (09:57)
[2017-09-06] MEDS: CARVEDILOL 20 MG PO SCH (10:06)
--- NOTE | 2017-09-06 10:24 | CP.PCM.PN ---
<Anne Rogers - Last Filed: 09/06/17 12:01> Subjective - Date & Time of Evaluation Date of Evaluation: 09/06/17 Time of Evaluation: 10:24 - Subjective Subjective: Internal Medicine Progress Note: Patient seen and examined at bedside. Per nursing no acute events overnight. Patient reports having Right knee pain that has been progressively getting worse over the last few months. She has a history of Left knee replacement in 2005 and believes that the pain is from arthritis. She denies any fevers, chills , headaches, dizziness, cp, palpitations, sob, abdominal pain, urinary symptoms , back pain. Objective - Vital Signs/Intake and Output Vital Signs (last 24 hours): Temp Pulse Resp BP Pulse Ox 99.0 F 74 20 151/52 H 97 09/06/17 06:00 09/06/17 09:57 09/06/17 06:00 09/06/17 09:57 09/06/17 06:00 Intake and Output: 09/06/17 09/06/17 06:59 18:59 Output Total 1000 Balance -1000 - Medications Medications: Current Medications Albuterol/Ipratropium (Duoneb 3 Mg/0.5 Mg (3 Ml) Ud) 3 ml IH Q6H PRN PRN Reason: Shortness of Breath Aspirin (Ecotrin) 81 mg PO DAILY [facility] Last Admin: 09/06/17 09:58 Dose: 81 mg Atorvastatin Calcium (Lipitor) 20 mg PO HS [facility] Last Admin: 09/05/17 22:46 Dose: 20 mg Doxazosin Mesylate (Cardura) 2 mg PO DAILY [facility] Last Admin: 09/06/17 09:58 Dose: 2 mg Famotidine (Pepcid) 20 mg PO 1000,2200 [facility] Last Admin: 09/06/17 09:58 Dose: 20 mg Gabapentin (Neurontin) 100 mg PO TID [facility] PRN Reason: Protocol Last Admin: 09/06/17 09:58 Dose: 100 mg Heparin Sodium (Porcine) (Heparin) 5,000 units SC Q8H [facility] PRN Reason: Protocol Last Admin: 09/06/17 08:37 Dose: 5,000 units Hydralazine HCl (Apresoline) 10 mg IVP Q6 PRN PRN Reason: Systolic Blood Pressure Last Admin: 09/04/17 21:29 Dose: 10 mg Insulin Human Lispro (Humalog Low) 0 units SC ACHS [facility] PRN Reason: Protocol Last Admin: 09/06/17 08:37 Dose: 1 units Nifedipine (Procardia Xl) 60 mg PO DAILY [facility] Last Admin: 09/06/17 09:57 Dose: 60 mg Carvedilol [Coreg Cr ] 20 Mg (Non- Formulary) 20 mg PO DAILY [facility] Last Admin: 09/06/17 10:06 Dose: 20 mg Tamsulosin HCl (Flomax) 0.4 mg PO DAILY [facility] Last Admin: 09/06/17 09:57 Dose: 0.4 mg - Labs Labs: 09/06/17 06:30 09/06/17 06:30 PT 11.2 SECONDS (9.4-12.5) 09/03/17 12:25 INR 0.97 (0.93-1.08) 09/03/17 12:25 APTT 31.8 Seconds (25.1-36.5) 09/03/17 12:25 - Additional Findings Additional findings: - Constitutional Appears: No Acute Distress - Head Exam Head Exam: ATRAUMATIC, NORMAL INSPECTION - Eye Exam Eye Exam: EOMI, PERRL - Neck Exam Neck Exam: Full ROM - Respiratory Exam Respiratory Exam: Clear to Ausculation Bilateral, NORMAL BREATHING PATTERN - Cardiovascular Exam Cardiovascular Exam: REGULAR RHYTHM, +S1, +S2 - Extremities Exam Extremities Exam: Normal Capillary Refill. Right knee tenderness to palpation, + SCDs absent: Calf Tenderness, Tenderness - Neurological Exam Neurological Exam: Alert, Awake, CN II-XII Intact, Oriented x3. absent: Motor Sensory Deficit - Psychiatric Exam Psychiatric exam: Normal Affect, Normal Mood - Skin Skin Exam: Dry, Warm Assessment and Plan - Assessment and Plan (Free Text) Assessment: 82yo female PMHx HTN, HLD, DM, and asthma [place] [facility] right sided weakness and aphasia. Patient was found to be hypoglycemic in ED. CT scan of the head is negative for acute intracranial abnormalities. Patient to be evaluated by neurology and cardiology. Plan: Altered Mental Status - resolved -Patient presented with right sided weakness, difficulty speaking, chest pressure -Etiology: Likely hypoglycemic episode -Head CT: Mild age related neuro degenerative changes are appreciated which appear age-appropriate. No definite acute intracranial findings -Head CTA: unremarkable -MRI showed no acute findings -Echo showed diastolic dysfunction, normal LVEF -Neuro Consulted, help appreciated -Continue ASA, Blood pressure and blood glucose control. PT/OT/ST -PT Re-evaluated the patient and is recommending TCU for disposition Orthostatic Hypotension -Orthostatics are positive (laying 150/51, sitting 129/65, standing 120/56) -Patient will need to continue physical therapy -Awaiting TCU evaluation Right Knee Pain -Likely due to osteoarthritis -No focal or Neurological deficits -Right Knee X rays ordered Hx of HTN -Procardia 60mg PO daily -Coreg 20mg PO daily -Hydralazine prn -Cardio Dr Call consulted, help appreciated Hx of DM2 -RISS low, Accucheck ACHS -HgbA1c is 6.9 Hx of HLD -Continue Lipitor 20mg HS Hx of asthma -Duoneb prn -Continue ISS Q2H Chronic Kidney Disease -Renal function is stable at this time GI ppx: Pepcid DVT ppx: Heparin Disposition: PT recommending TCU for disposition. Awaiting TCU evaluation at this time. Case and plan discussed with attending, Dr Alvarado <Lori Alvarado - Last Filed: 09/06/17 14:02> Objective - Vital Signs/Intake and Output Vital Signs (last 24 hours): Temp Pulse Resp BP Pulse Ox 98.2 F 73 19 143/56 L 97 09/06/17 12:00 09/06/17 12:00 09/06/17 12:00 09/06/17 12:00 09/06/17 06:00 Intake and Output: 09/06/17 09/06/17 06:59 18:59 Output Total 1000 Balance -1000 - Medications Medications: Current Medications Albuterol/Ipratropium (Duoneb 3 Mg/0.5 Mg (3 Ml) Ud) 3 ml IH Q6H PRN PRN Reason: Shortness of Breath Aspirin (Ecotrin) 81 mg PO DAILY [facility] Last Admin: 09/06/17 09:58 Dose: 81 mg Atorvastatin Calcium (Lipitor) 20 mg PO HS [facility] Last Admin: 09/05/17 22:46 Dose: 20 mg Doxazosin Mesylate (Cardura) 2 mg PO DAILY [facility] Last Admin: 09/06/17 09:58 Dose: 2 mg Famotidine (Pepcid) 20 mg PO 1000,2200 [facility] Last Admin: 05/06/18 09:58 Dose: 20 mg Gabapentin (Neurontin) 100 mg PO TID [facility] PRN Reason: Protocol Last Admin: 09/06/17 09:58 Dose: 100 mg Heparin Sodium (Porcine) (Heparin) 5,000 units SC Q8H [facility] PRN Reason: Protocol Last Admin: 09/06/17 08:37 Dose: 5,000 units Hydralazine HCl (Apresoline) 10 mg IVP Q6 PRN PRN Reason: Systolic Blood Pressure Last Admin: 09/04/17 21:29 Dose: 10 mg Insulin Human Lispro (Humalog Low) 0 units SC ACHS [facility] PRN Reason: Protocol Last Admin: 09/06/17 12:20 Dose: 1 units Nifedipine (Procardia Xl) 60 mg PO DAILY [facility] Last Admin: 09/06/17 09:57 Dose: 60 mg Carvedilol [Coreg Cr ] 20 Mg (Non- Formulary) 20 mg PO DAILY [facility] Last Admin: 09/06/17 10:06 Dose: 20 mg Tamsulosin HCl (Flomax) 0.4 mg PO DAILY [facility] Last Admin: 09/06/17 09:57 Dose: 0.4 mg - Labs Labs: 09/06/17 06:30 09/06/17 06:30 PT 11.2 SECONDS (9.4-12.5) 09/03/17 12:25 INR 0.97 (0.93-1.08) 09/03/17 12:25 APTT 31.8 Seconds (25.1-36.5) 09/03/17 12:25 Attending/Attestation - Attestation I have personally seen and examined this patient.: Yes I have fully participated in the care of the patient.: Yes I have reviewed all pertinent clinical information, including history, physical exam and plan: Yes Notes (Text): I have seen and examined the patient at bedside. Agree with the above note with the following additions/ exceptions: Briefly this is 82 year old female with history of HTN, dyslipidemia, DM-2, asthma, osteoarthritis who was admitted for AMS, right sided weakness and aphasia secondary to hypoglycemia due to insulin and oral hypoglycemics. A1C is 6.9. Will hold insulin and hypoglycemics for now. CT head is negative. MRI is unremarkable. CHF revealed mild diastolic dysfunction. Today patient complains of severe right knee pain. She has been suffering from OA for many years. She had Right knee replaced in 2005. Will consult ortho and will order imaging of the knee. PT recommended TCU evaluation. Upon discharge patient will follow up with .
--- NOTE | 2017-09-06 13:01 | RAD ---
PROCEDURE: Right Knee Radiographs. HISTORY: Right Knee pain COMPARISON: None. FINDINGS: BONES: Normal. No fracture. JOINTS: There is severe joint space narrowing in the medial and lateral compartments. The changes are most severe medially. There is osteophyte formation and bony sclerosis on the medial side. The patellofemoral joint is unremarkable JOINT EFFUSION: None. OTHER FINDINGS: None. IMPRESSION: Severe joint space narrowing medial greater than lateral.
[2017-09-07 06:58] LABS: BASO # 0.02 K/mm3 (0.0-2.0); BASO % 0.2 % (0.0-3.0); EOS # 0.1 (0.0-0.7); GRAN # 5.84 (1.4-6.5); GRAN % 68.2 % (50.0-68.0); HEMOGLOBIN 9.4 g/dL (12.0-16.0); LYMPH # 1.7 (1.2-3.4); LYMPH % 19.2 % (22.0-35.0); MEAN CELL VOLUME 80.4 fl (80.0-105.0); MEAN CORPUSCULAR HEMOGLOBIN 25.9 pg (25.0-35.0); MEAN CORPUSCULAR HGB CONC 32.2 g/dl (31.0-37.0); MEAN PLATELET VOLUME 9.5 fl (7.0-11.0); MONO % 11.4 % (1.0-6.0); RBC 3.63 10^6/uL (3.5-6.1); RED CELL DISTRIBUTION WIDTH 14.1 % (11.5-14.5); WHITE BLOOD COUNT 8.6 10^3/ul (4.5-11.0)
[2017-09-07 07:33] VITALS: O2SAT 95
[2017-09-07 07:33] LABS: ALBUMIN 3.9 g/dL (3.0-4.8); CALCIUM 9.3 mg/dL (8.4-10.5)
[2017-09-07 07:34] LABS: ALB/GLOB RATIO 1.3 (1.1-1.8)
--- NOTE | 2017-09-07 08:28 | CP.PCM.PN ---
Objective - Vital Signs/Intake and Output Vital Signs (last 24 hours): Temp Pulse Resp BP Pulse Ox 98.7 F 79 20 142/52 L 95 09/07/17 06:00 09/07/17 06:00 09/07/17 06:00 09/07/17 06:00 09/07/17 06:00 Intake and Output: 09/07/17 09/07/17 06:59 18:59 Intake Total 420 Balance 420 - Medications Medications: Current Medications Albuterol/Ipratropium (Duoneb 3 Mg/0.5 Mg (3 Ml) Ud) 3 ml IH Q6H PRN PRN Reason: Shortness of Breath Aspirin (Ecotrin) 81 mg PO DAILY [facility] Last Admin: 09/06/17 09:58 Dose: 81 mg Atorvastatin Calcium (Lipitor) 20 mg PO HS [facility] Last Admin: 09/06/17 21:57 Dose: 20 mg Doxazosin Mesylate (Cardura) 2 mg PO DAILY [facility] Last Admin: 09/06/17 09:58 Dose: 2 mg Famotidine (Pepcid) 20 mg PO 1000,2200 [facility] Last Admin: 09/06/17 22:17 Dose: 20 mg Gabapentin (Neurontin) 100 mg PO TID [facility] PRN Reason: Protocol Last Admin: 09/06/17 17:31 Dose: 100 mg Heparin Sodium (Porcine) (Heparin) 5,000 units SC Q8H [facility] PRN Reason: Protocol Last Admin: 09/06/17 23:30 Dose: 5,000 units Hydralazine HCl (Apresoline) 10 mg IVP Q6 PRN PRN Reason: Systolic Blood Pressure Last Admin: 09/07/17 00:48 Dose: 10 mg Insulin Human Lispro (Humalog Low) 0 units SC ACHS [facility] PRN Reason: Protocol Last Admin: 09/06/17 22:15 Dose: Not Given Nifedipine (Procardia Xl) 60 mg PO DAILY [facility] Last Admin: 09/06/17 09:57 Dose: 60 mg Carvedilol [Coreg Cr ] 20 Mg (Non- Formulary) 20 mg PO DAILY [facility] Last Admin: 09/06/17 10:06 Dose: 20 mg Tamsulosin HCl (Flomax) 0.4 mg PO DAILY [facility] Last Admin: 09/06/17 09:57 Dose: 0.4 mg - Labs Labs: 09/07/17 05:30 09/07/17 05:30 PT 11.2 SECONDS (9.4-12.5) 09/03/17 12:25 INR 0.97 (0.93-1.08) 09/03/17 12:25 APTT 31.8 Seconds (25.1-36.5) 09/03/17 12:25
[2017-09-07] MEDS ORDERED: MethylPREDNISolone Depo 40 mg/ml Inj IM ONE (08:33)
[2017-09-07] MEDS: Insulin Lispro (humaLOG) LOW Coverage SC SCH ×3 (08:33→17:30)
[2017-09-07] MEDS ORDERED: Bupivacaine 0.5% Inj(30mL) IJ ONE (08:33)
[2017-09-07 08:53] LABS: FLUID TYPE SYNOVIAL FLUID
[2017-09-07 09:17] LABS: SF GROSS APPEARANCE CLOUDY (CLEAR)
[2017-09-07] MEDS: NIFEdipine 60 mg ER Tab PO SCH (11:34)
[2017-09-07] MEDS: CARVEDILOL 20 MG PO SCH (11:35)
--- NOTE | 2017-09-07 12:00 | CP.PCM.DIS ---
<RobertSumanth - Last Filed: 09/07/17 14:52> Provider - Provider Date of Admission: 09/03/17 13:51 Attending physician: Lori Alvarado MD Consults: Cardio: Elkind Neuro: Danielle Ortho: Mastromonaco Time Spent in preparation of Discharge (in minutes): 40 Hospital Course - Lab Results Lab Results: Micro Results 09/03/17 21:49 Urine,Catheterized Urine Culture - Final No Growth (<1,000 CFU/ML) Most Recent Lab Values WBC 8.6 10^3/ul (4.5-11.0) 09/07/17 05:30 RBC 3.63 10^6/uL (3.5-6.1) 09/07/17 05:30 Hgb 9.4 g/dL (12.0-16.0) L 09/07/17 05:30 Hct 29.2 % (36.0-48.0) L 09/07/17 05:30 MCV 80.4 fl (80.0-105.0) 09/07/17 05:30 MCH 25.9 pg (25.0-35.0) 09/07/17 05:30 MCHC 32.2 g/dl (31.0-37.0) 09/07/17 05:30 RDW 14.1 % (11.5-14.5) 09/07/17 05:30 Plt Count 197 10^3/uL (120.0-450.0) 09/07/17 05:30 MPV 9.5 fl (7.0-11.0) 09/07/17 05:30 Gran % 68.2 % (50.0-68.0) H 09/07/17 05:30 Lymph % (Auto) 19.2 % (22.0-35.0) L 09/07/17 05:30 Bladen % (Auto) 11.4 % (1.0-6.0) H 09/07/17 05:30 Eos % (Auto) 1.0 % (1.5-5.0) L 09/07/17 05:30 Baso % (Auto) 0.2 % (0.0-3.0) 09/07/17 05:30 Gran # 5.84 (1.4-6.5) 09/07/17 05:30 Lymph # (Auto) 1.7 (1.2-3.4) 09/07/17 05:30 Bladen # (Auto) 1.0 (0.1-0.6) H 09/07/17 05:30 Eos # (Auto) 0.1 (0.0-0.7) 09/07/17 05:30 Baso # (Auto) 0.02 K/mm3 (0.0-2.0) 09/07/17 05:30 PT 11.2 SECONDS (9.4-12.5) 09/03/17 12:25 INR 0.97 (0.93-1.08) 09/03/17 12:25 APTT 31.8 Seconds (25.1-36.5) 09/03/17 12:25 Sodium 142 mmol/L (132-148) 09/07/17 05:30 Potassium 4.5 mmol/L (3.6-5.0) 09/07/17 05:30 Chloride 109 mmol/L (98-107) H 09/07/17 05:30 Carbon Dioxide 20 mmol/L (21-33) L 09/07/17 05:30 Anion Gap 17 (10-20) 09/07/17 05:30 BUN 30 mg/dL (7-21) H 09/07/17 05:30 Creatinine 1.5 mg/dl (0.7-1.2) H 09/07/17 05:30 Est GFR ( Amer) 40 09/07/17 05:30 Est GFR (Non-Af Amer) 33 09/07/17 05:30 POC Glucose (mg/dL) 158 mg/dL (65-110) H 09/07/17 07:27 Random Glucose 155 mg/dL (70-110) H 09/07/17 05:30 Hemoglobin A1c 6.9 % (4.2-6.5) H 09/03/17 12:25 Calcium 9.3 mg/dL (8.4-10.5) 09/07/17 05:30 Iron 63 ug/dL (45-180) 09/03/17 19:35 TIBC 289 ug/dL (265-497) 09/03/17 19:35 % Saturation 22 % (20-55) 09/03/17 19:35 Transferrin 210.30 mg/dL (206-381) 09/03/17 19:35 Ferritin 98.9 ng/mL 09/03/17 19:35 Total Bilirubin 0.6 mg/dL (0.2-1.3) 09/07/17 05:30 AST 61 U/L (14-36) H D 09/07/17 05:30 ALT 52 U/L (7-56) 09/07/17 05:30 Alkaline Phosphatase 77 U/L (38-126) 09/07/17 05:30 Troponin I 0.03 ng/mL D 09/04/17 00:45 NT-Pro-B Natriuret Pep 169 pg/mL (0-450) 09/03/17 12:25 Total Protein 6.9 g/dL (5.8-8.3) 09/07/17 05:30 Albumin 3.9 g/dL (3.0-4.8) 09/07/17 05:30 Globulin 3.0 gm/dL 09/07/17 05:30 Albumin/Globulin Ratio 1.3 (1.1-1.8) 09/07/17 05:30 Triglycerides 52 mg/dL (35-160) 09/03/17 12:25 Cholesterol 114 mg/dL (130-200) L 09/03/17 12:25 LDL Cholesterol Direct 44 mg/dL (0-129) 09/03/17 12:25 HDL Cholesterol 52 mg/dL (29-60) 09/03/17 12:25 Vitamin B12 337 pg/mL (239-931) 09/03/17 19:35 Folate > 20.0 ng/mL 09/03/17 19:35 Urine Color Yellow (YELLOW) 09/03/17 21:49 Urine Appearance Clear (CLEAR) 09/03/17 21:49 Urine pH 5.5 (4.7-8.0) 09/03/17 21:49 Ur Specific [place] <= 1.005 (1.005-1.035) 09/03/17 21:49 Urine Protein Negative mg/dL (<30 mg/dL) 09/03/17 21:49 Urine Glucose (UA) Negative mg/dL (NEGATIVE) 09/03/17 21:49 Urine Ketones Negative mg/dL (NEGATIVE) 09/03/17 21:49 Urine Blood Large (NEGATIVE) H 09/03/17 21:49 Urine Nitrate Negative (NEGATIVE) 09/03/17 21:49 Urine Bilirubin Negative (NEGATIVE) 09/03/17 21:49 Urine Urobilinogen 0.2 E.U./dL (<1 E.U./dL) 09/03/17 21:49 Ur Leukocyte Esterase Negative Rossi/uL (NEGATIVE) 09/03/17 21:49 Urine RBC 25 - 30 /hpf (0-2) 09/03/17 21:49 Urine WBC 0 - 2 /hpf (0-6) 09/03/17 21:49 Ur Epithelial Cells 0 - 2 /hpf (0-5) 09/03/17 21:49 Fluid Type Synovial fluid 09/07/17 08:00 Synovial WBC 67618.0 /uL (0.0-150.0) H 09/07/17 08:00 Synovial RBC 149.0 /uL (0.0-0.0) H 09/07/17 08:00 Synovial Neutrophils 89.8 % (0-0) H 09/07/17 08:00 Synovial Lymphocytes 10.2 % (0-0) H 09/07/17 08:00 Synov Monos/Macrophage TEST NOT PERFORMED 09/07/17 08:00 Synovial Fluid Comment TEST NOT PERFORMED 09/07/17 08:00 Blood Type A POSITIVE 09/03/17 15:24 Blood Type Confirm A POSITIVE 09/03/17 14:39 Antibody Screen Negative 09/03/17 15:24 BBK History Checked No verified bt 09/03/17 15:24 - Hospital Course Hospital Course: 82yo female PMHx HTN, HLD, DM, and asthma presents to [facility] [place] for right sided weakness and aphasia. History as per patient who was back to baseline in the ED and AO x 3. She reported that she woke up this morning and was unable to move and was having difficulty finding her words. The last time she was seen normal was last night before bed around 10 pm. When her son found her, patient was sitting on her bed with one leg off. She said she felt like she didn't have the strength to move and she continued to have difficulty answering questions. Patient also complained of some chest discomfort at home which she described as a pressure like sensation in the middle of her chest. She rated the pain 5-6/10 and it had resolved when she lay flat and by the time she came to the ER. On ROS patient admitted to headache, dizziness, and b/l knee pain. She denied fever , chills, blurry vision, sore throat, palpitations, SOB, cough, abd pain, nausea , vomiting, bowel/bladder complaints. Patient ambulates with a walker and completes ADLs. She denied any recent travel/sick contacts. Patient presented with right sided weakness, difficulty speaking, chest pressure and symptoms resolved during admission. The etiology was likely due to hypoglycemia. Head CT was done and revealed Mild age related neuro degenerative changes are appreciated which appear age-appropriate but no definite acute intracranial findings. Head CTA and MRi were unremarkable. Echo showed diastolic dysfunction with normal LVEF. Neuro and cardiology were consulted and supplemented care. Patient was also found to have orthostatic hypotension. Patient had been working with PT/OT. PT recommended further work due to right knee pain and osteoarthritis. She received a cortisone injection from Ortho which has provided some relief. Today (09/05), patient was deemed medically stable by Dr. Alvarado and consultants. Patient will be discharged to TCU. (This is a summary of the hospital course. Please refer to EMR for details) Discharge Exam - Head Exam Head Exam: ATRAUMATIC, NORMAL INSPECTION, NORMOCEPHALIC - Eye Exam Eye Exam: EOMI, Normal appearance Pupil Exam: PERRL - ENT Exam ENT Exam: Mucous Membranes Moist - Respiratory Exam Respiratory Exam: Clear to PA & Lateral, NORMAL BREATHING PATTERN - Cardiovascular Exam Cardiovascular Exam: REGULAR RHYTHM - GI/Abdominal Exam GI & Abdominal Exam: Normal Bowel Sounds, Soft. absent: Tenderness - Extremities Exam Extremities exam: normal capillary refill - Neurological Exam Neurological exam: Alert, CN II-XII Intact, Oriented x3 - Psychiatric Exam Psychiatric exam: Normal Affect, Normal Mood - Skin Skin Exam: Dry, Intact, Warm Discharge Plan - Follow Up Plan Condition: STABLE Disposition: REHAB FACILITY/REHAB UNIT <Lori Alvarado - Last Filed: 09/07/17 16:03> Provider - Provider Date of Admission: 09/03/17 13:51 Attending physician: Lori Alvarado MD Hospital Course - Lab Results Lab Results: Micro Results 09/03/17 21:49 Urine,Catheterized Urine Culture - Final No Growth (<1,000 CFU/ML) Most Recent Lab Values WBC 8.6 10^3/ul (4.5-11.0) 09/07/17 05:30 RBC 3.63 10^6/uL (3.5-6.1) 09/07/17 05:30 Hgb 9.4 g/dL (12.0-16.0) L 09/07/17 05:30 Hct 29.2 % (36.0-48.0) L 09/07/17 05:30 MCV 80.4 fl (80.0-105.0) 09/07/17 05:30 MCH 25.9 pg (25.0-35.0) 09/07/17 05:30 MCHC 32.2 g/dl (31.0-37.0) 09/07/17 05:30 RDW 14.1 % (11.5-14.5) 09/07/17 05:30 Plt Count 197 10^3/uL (120.0-450.0) 09/07/17 05:30 MPV 9.5 fl (7.0-11.0) 09/07/17 05:30 Gran % 68.2 % (50.0-68.0) H 09/07/17 05:30 Lymph % (Auto) 19.2 % (22.0-35.0) L 09/07/17 05:30 Bladen % (Auto) 11.4 % (1.0-6.0) H 09/07/17 05:30 Eos % (Auto) 1.0 % (1.5-5.0) L 09/07/17 05:30 Baso % (Auto) 0.2 % (0.0-3.0) 09/07/17 05:30 Gran # 5.84 (1.4-6.5) 09/07/17 05:30 Lymph # (Auto) 1.7 (1.2-3.4) 09/07/17 05:30 Bladen # (Auto) 1.0 (0.1-0.6) H 09/07/17 05:30 Eos # (Auto) 0.1 (0.0-0.7) 09/07/17 05:30 Baso # (Auto) 0.02 K/mm3 (0.0-2.0) 09/07/17 05:30 PT 11.2 SECONDS (9.4-12.5) 09/03/17 12:25 INR 0.97 (0.93-1.08) 09/03/17 12:25 APTT 31.8 Seconds (25.1-36.5) 09/03/17 12:25 Sodium 142 mmol/L (132-148) 09/07/17 05:30 Potassium 4.5 mmol/L (3.6-5.0) 09/07/17 05:30 Chloride 109 mmol/L (98-107) H 09/07/17 05:30 Carbon Dioxide 20 mmol/L (21-33) L 09/07/17 05:30 Anion Gap 17 (10-20) 09/07/17 05:30 BUN 30 mg/dL (7-21) H 09/07/17 05:30 Creatinine 1.5 mg/dl (0.7-1.2) H 09/07/17 05:30 Est GFR ( Amer) 40 09/07/17 05:30 Est GFR (Non-Af Amer) 33 09/07/17 05:30 POC Glucose (mg/dL) 284 mg/dL (65-110) H 09/07/17 10:53 Random Glucose 155 mg/dL (70-110) H 09/07/17 05:30 Hemoglobin A1c 6.9 % (4.2-6.5) H 09/03/17 12:25 Calcium 9.3 mg/dL (8.4-10.5) 09/07/17 05:30 Iron 63 ug/dL (45-180) 09/03/17 19:35 TIBC 289 ug/dL (265-497) 09/03/17 19:35 % Saturation 22 % (20-55) 09/03/17 19:35 Transferrin 210.30 mg/dL (206-381) 09/03/17 19:35 Ferritin 98.9 ng/mL 09/03/17 19:35 Total Bilirubin 0.6 mg/dL (0.2-1.3) 09/07/17 05:30 AST 61 U/L (14-36) H D 09/07/17 05:30 ALT 52 U/L (7-56) 09/07/17 05:30 Alkaline Phosphatase 77 U/L (38-126) 09/07/17 05:30 Troponin I 0.03 ng/mL D 09/04/17 00:45 NT-Pro-B Natriuret Pep 169 pg/mL (0-450) 09/03/17 12:25 Total Protein 6.9 g/dL (5.8-8.3) 09/07/17 05:30 Albumin 3.9 g/dL (3.0-4.8) 09/07/17 05:30 Globulin 3.0 gm/dL 09/07/17 05:30 Albumin/Globulin Ratio 1.3 (1.1-1.8) 09/07/17 05:30 Triglycerides 52 mg/dL (35-160) 09/03/17 12:25 Cholesterol 114 mg/dL (130-200) L 09/03/17 12:25 LDL Cholesterol Direct 44 mg/dL (0-129) 09/03/17 12:25 HDL Cholesterol 52 mg/dL (29-60) 09/03/17 12:25 Vitamin B12 337 pg/mL (239-931) 09/03/17 19:35 Folate > 20.0 ng/mL 09/03/17 19:35 Urine Color Yellow (YELLOW) 09/03/17 21:49 Urine Appearance Clear (CLEAR) 09/03/17 21:49 Urine pH 5.5 (4.7-8.0) 09/03/17 21:49 Ur Specific [place] <= 1.005 (1.005-1.035) 09/03/17 21:49 Urine Protein Negative mg/dL (<30 mg/dL) 09/03/17 21:49 Urine Glucose (UA) Negative mg/dL (NEGATIVE) 09/03/17 21:49 Urine Ketones Negative mg/dL (NEGATIVE) 09/03/17 21:49 Urine Blood Large (NEGATIVE) H 09/03/17 21:49 Urine Nitrate Negative (NEGATIVE) 09/03/17 21:49 Urine Bilirubin Negative (NEGATIVE) 09/03/17 21:49 Urine Urobilinogen 0.2 E.U./dL (<1 E.U./dL) 09/03/17 21:49 Ur Leukocyte Esterase Negative Rossi/uL (NEGATIVE) 09/03/17 21:49 Urine RBC 25 - 30 /hpf (0-2) 09/03/17 21:49 Urine WBC 0 - 2 /hpf (0-6) 09/03/17 21:49 Ur Epithelial Cells 0 - 2 /hpf (0-5) 09/03/17 21:49 Fluid Type Synovial fluid 09/07/17 08:00 Synovial WBC 88647.0 /uL (0.0-150.0) H 09/07/17 08:00 Synovial RBC 149.0 /uL (0.0-0.0) H 09/07/17 08:00 Synovial Neutrophils 89.8 % (0-0) H 09/07/17 08:00 Synovial Lymphocytes 10.2 % (0-0) H 09/07/17 08:00 Synov Monos/Macrophage TEST NOT PERFORMED 09/07/17 08:00 Synovial Fluid Comment TEST NOT PERFORMED 09/07/17 08:00 Blood Type A POSITIVE 09/03/17 15:24 Blood Type Confirm A POSITIVE 09/03/17 14:39 Antibody Screen Negative 09/03/17 15:24 BBK History Checked No verified bt 09/03/17 15:24 Attending/Attestation - Attestation I have personally seen and examined this patient.: Yes I have fully participated in the care of the patient.: Yes I have reviewed all pertinent clinical information, including history, physical exam and plan: Yes Notes (Text): I have seen and examined the patient at bedside. Agree with the above note with the following additions/ exceptions: Briefly this is 82 year old female with history of HTN, dyslipidemia, DM-2, asthma, osteoarthritis who was admitted for AMS, right sided weakness and aphasia secondary to hypoglycemia due to insulin and oral hypoglycemics. A1C is 6.9. Will hold insulin and hypoglycemics for now. CT head is negative. MRI is unremarkable. CHF revealed mild diastolic dysfunction. Patient had severe right knee pain which got better with steroid injection. Ortho consult appreciated. PT recommended TCU evaluation. Patient will be sent to TCU today. Upon discharge patient will follow up with .
[2017-09-07 13:11] VITALS: RESP 18
--- NOTE | 2017-09-07 14:50 | CON ---
DATE: 09/07/2017 LOCATION: An 82-year-old female in room 267. HISTORY OF PRESENT ILLNESS: She has pain in her right knee with effusion. X-ray shows osteoarthritis. I aspirated 30 mL of serosanguineous fluid and sent it to the lab for cell count, culture and crystals. I have injected the right knee with Depo-Medrol and Marcaine and we will wait for the results. In the meantime, I will send it to Therapy for up out of bed and ambulate with a walker. FINAL DIAGNOSIS: Osteoarthritis of right knee with effusion. Griffin Frank DO
--- NOTE | 2017-09-07 17:50 | CON ---
DATE: ORTHOPEDIC CONSULT HISTORY OF PRESENT ILLNESS: Patient is an 82-year-old female in room 267, bed 1, has tremendous pain in her right knee with an effusion; x-ray showing advanced osteoarthritis of the right knee, mainly medial side, she is very obese. We aspirated her right knee; after prepping and draping her right knee, aspirated approximately 20 mL of zero-turbid fluid, sent to the lab for culture, cell count, and crystals and injected with Depo-Medrol and Marcaine. This is a low probability of infection. So, I will see what the specimen shows under Gram stain, culture, cell count and crystals. She is not thinking of surgery. So, hopefully, this cortisone shot will help her and get her to ambulate better with therapy and help her pain. FINAL DIAGNOSES: Osteoarthritis of right knee with effusion, we will send the fluids to lab and inject her with Depo-Medrol and Marcaine. Griffin Frank DO HODA
[2017-09-07 18:57] VITALS: BP 172/70; TEMP 99.3
[2017-09-07 19:50] VITALS: PULSE 83
== END 2017-09-07 19:48 | DRG 638 ==
LOC: ED 11:54 → ERH 13:51 → 2RNO 17:53
PROVIDERS: ADMIT Internal Medicine; ATTEND Hospitalist
PROC: 0S9C3ZX Drainage of Right Knee Joint, Percutaneous Approach, Diagnostic (ICD-10-PCS; principal; 2017-09-07)
PROC: 3E0U33Z Introduction of Anti-inflammatory into Joints, Percutaneous Approach (ICD-10-PCS; 2017-09-07)
PROC: 3E0U3BZ Introduction of Anesthetic Agent into Joints, Percutaneous Approach (ICD-10-PCS; 2017-09-07)
DX: E11.649 Type 2 diabetes mellitus with hypoglycemia without coma (principal); R47.01 Aphasia; R53.1 Weakness; I50.30 Unspecified diastolic (congestive) heart failure; Z68.42 Body mass index [BMI] 45.0-49.9, adult; T38.3X5A Adverse effect of insulin and oral hypoglycemic [antidiabetic] drugs, initial encounter; I11.0 Hypertensive heart disease with heart failure; E78.00 Pure hypercholesterolemia, unspecified; M17.11 Unilateral primary osteoarthritis, right knee; M25.461 Effusion, right knee; M54.10 Radiculopathy, site unspecified; I95.1 Orthostatic hypotension; E66.9 Obesity, unspecified; Z96.652 Presence of left artificial knee joint; Z90.49 Acquired absence of other specified parts of digestive tract; G47.30 Sleep apnea, unspecified

== ENCOUNTER 2017-09-07 19:44 | Inpatient (IN) | payer OTHER, MEDICARE ==
[2017-09-07 20:27] VITALS: BMI 46.3
[2017-09-07] MEDS ORDERED: Albuterol-Ipratrop 3 mg / 0.5 (3 ml) UD IH PRN (20:46)
[2017-09-07] MEDS ORDERED: Pneumococcal 23-Valent Vaccine IM ONE (21:54)
[2017-09-07] MEDS: Insulin Lispro (humaLOG) LOW Coverage SC SCH (22:24)
[2017-09-08] MEDS: Insulin Lispro (humaLOG) LOW Coverage SC SCH (06:42)
--- NOTE | 2017-09-08 07:12 | CP.PCM.HP ---
<Sumanth Jones - Last Filed: 09/08/17 11:28> History of Present Illness - History of Present Illness History of Present Illness: Medicine H&P for Dr. Alvarado Admission to TCU for further PT and conditioning 82F with PMH that includes HTN, HLD, DM, and asthma presented to [facility] for right sided weakness and aphasia on 09/03. Patient was found to be hypoglycemic in ED at that time. Head CT, MRI and MRA found to be unremarkable. ECHO showed normal LVEF with diastolic dysfunction. The etiology of her symptoms were presumed to be caused by the hypoglycemia. Cardiology and Neurology were both consulted and evaluated her during inpatient admision. Patient's symptoms resolved and now transferred to TCU for further physical therapy and conditioning. Patient has no complaints at this time. 12 point ROS was found to be negative unless otherwise stated above. PMD: Cardio: Dr. Call Nephro: Dr. Irby Pulm: Dr. Montilla PMH: HTN, HLD, DM, asthma, CHF, CKD Meds: As per EMR Allergies: denies PSH: cholecystectomy 15years ago, L knee arthroplasty 2005 FH: non-contributory Social: denies tobacco/EtOH/drug use; lives at home with her son; retired Present on Admission - Present on Admission Any Indicators Present on Admission: No History of DVT/PE: No History of Uncontrolled Diabetes: No Urinary Catheter: No Decubitus Ulcer Present: No History Surgical Site Infection Following: None Review of Systems - Review of Systems All systems: reviewed and no additional remarkable complaints except (as per HPI ) Past Patient History - Infectious Disease Hx of Infectious Diseases: None - Past Social History Smoking Status: Never Smoked - CARDIAC Hx Hypercholesterolemia: Yes Hx Hypertension: Yes - PULMONARY Hx Respiratory Disorders: Yes Hx Asthma: Yes Hx Emphysema: Yes Hx Sleep Apnea: Yes (USES CPAP AT HOME) - NEUROLOGICAL Hx Neurological Disorder: No - HEENT Hx HEENT Problems: No - RENAL Hx Chronic Kidney Disease: No - ENDOCRINE/METABOLIC Hx Diabetes Mellitus Type 2: Yes - HEMATOLOGICAL/ONCOLOGICAL Hx Blood Disorders: No - INTEGUMENTARY Hx Dermatological Problems: Yes (RIGHT 2ND TOE BLACKENED,CALLOUSED AREA.GOES TO DR. FRANCO) - MUSCULOSKELETAL/RHEUMATOLOGICAL Hx Falls: Yes (past) - GASTROINTESTINAL Hx Gastrointestinal Disorders: No - GENITOURINARY/GYNECOLOGICAL Hx Reproductive Disorders: No - PSYCHIATRIC Hx Psychophysiologic Disorder: No Hx Substance Use: No - SURGICAL HISTORY Hx Surgeries: Yes Hx Cholecystectomy: Yes Hx Orthopedic Surgery: Yes (Left Knee Replacement) - ANESTHESIA Hx Anesthesia: Yes Hx Anesthesia Reactions: No Hx Malignant Hyperthermia: No Meds Allergies/Adverse Reactions: Allergies Allergy/AdvReac Type Severity Reaction Status Date / Time No Known Allergies Allergy Verified 09/07/17 20:27 Physical Exam - Constitutional Appears: No Acute Distress - Head Exam Head Exam: ATRAUMATIC, NORMOCEPHALIC - Eye Exam Eye Exam: EOMI, Normal appearance Pupil Exam: PERRL - ENT Exam ENT Exam: Mucous Membranes Moist - Neck Exam Neck exam: Positive for: Normal Inspection - Respiratory Exam Respiratory Exam: Clear to Auscultation Bilateral, NORMAL BREATHING PATTERN - Cardiovascular Exam Cardiovascular Exam: REGULAR RHYTHM, +S1, +S2 - GI/Abdominal Exam GI & Abdominal Exam: Normal Bowel Sounds, Soft. absent: Distended, Tenderness - Extremities Exam Extremities exam: Positive for: normal capillary refill, pedal pulses present. Negative for: calf tenderness - Back Exam Back exam: absent: CVA tenderness (L), CVA tenderness (R) - Neurological Exam Neurological exam: Alert, CN II-XII Intact, Oriented x3 - Psychiatric Exam Psychiatric exam: Normal Affect, Normal Mood - Skin Skin Exam: Dry, Intact, Normal Color, Warm Results - Vital Signs Recent Vital Signs: Last Vital Signs Temp 98.3 F 09/07/17 21:45 Pulse 79 09/07/17 21:45 Resp 20 09/07/17 21:45 BP 144/65 09/07/17 21:45 Pulse Ox - Labs Labs: Laboratory Results - last 24 hr 09/08/17 05:13 POC Glucose (mg/dL) 220 H Assessment & Plan - Assessment and Plan (Free Text) Assessment: 82F with PMH of HTN, HLD, DM, CHF, CKD and asthma presents to [facility] for right sided weakness and aphasia. Patient was found to be hypoglycemic in ED. Patient now transferred to TCU for further physical therapy and conditioning. Plan: Altered Mental Status - resolved -Likely due to hypoglycemic episode -Head CT: Mild age related neuro degenerative changes are appreciated which appear age-appropriate. No definite acute intracranial findings -Head CTA: unremarkable -MRI showed no acute findings -Echo showed diastolic dysfunction, normal LVEF -Continue ASA, Blood pressure and blood glucose control. PT/OT/ST -PT/OT Orthostatic Hypotension; resolved -Patient will need to continue physical therapy Right Knee Pain; resolved -Likely due to osteoarthritis -s/p cortisone injection HTN -Procardia 60mg PO daily -Coreg 20mg PO daily -Hydralazine prn -Cardio Dr Call consulted, help appreciated -Monitor BP Hx of DM2 -RISS Med -Accucheck ACHS -HgbA1c is 6.9 -Restart home med Prandin 0.5 mg PO TID -Will increase Prandin dose slowly -Will re-evaluate glucose levels to see if home insulin is necessary Hx of HLD -Continue Lipitor 20mg HS Hx of asthma -Duoneb prn -Continue ISS Q2H Chronic Kidney Disease -Renal function is stable at this time GI ppx: Pepcid DVT ppx: Heparin Case and plan discussed with attending, Dr Christiano Jones PGY1 - Date & Time Date: 09/08/17 Time: 07:10 <Lori Alvarado B - Last Filed: 09/08/17 14:06> Results - Vital Signs Recent Vital Signs: Last Vital Signs Temp 98.3 F 09/07/17 21:45 Pulse 70 09/08/17 09:46 Resp 20 09/07/17 21:45 BP 135/68 09/08/17 09:46 Pulse Ox - Labs Labs: Laboratory Results - last 24 hr 09/08/17 09/08/17 05:13 11:21 POC Glucose (mg/dL) 220 H 293 H Attending/Attestation - Attestation I have personally seen and examined this patient.: Yes I have fully participated in the care of the patient.: Yes I have reviewed all pertinent clinical information: Yes Notes (Text): I have seen and examined the patient at bedside. Agree with the above note with the following additions/ exceptions: Briefly this is 82 year old female with history of HTN, dyslipidemia, DM-2, asthma, osteoarthritis who was admitted for AMS, right sided weakness and aphasia secondary to hypoglycemia due to insulin and oral hypoglycemics. A1C is 6.9. BS are increasing today. Patient reports that her appetite is back and she ate after a long time. Will start low dose prandin today. Will hold insulin for now. CT head is negative. MRI is unremarkable. CHF revealed mild diastolic dysfunction. Patient had severe right knee pain which got relieved with steroid injection. Patient will start participating in PT today. Upon discharge patient will follow up with .
[2017-09-08] MEDS: NIFEdipine 60 mg ER Tab PO SCH (09:46)
[2017-09-08] MEDS: CARVEDILOL 20 MG PO SCH (09:47)
[2017-09-08] MEDS ORDERED: CARVEDILOL 20 MG PO SCH (10:00)
[2017-09-08] MEDS: Insulin Lispro (humaLOG) MEDIUM Coverage SC SCH ×3 (11:36→21:58)
[2017-09-09] MEDS: Insulin Lispro (humaLOG) MEDIUM Coverage SC SCH ×4 (06:33→22:24)
[2017-09-09] MEDS: CARVEDILOL 20 MG PO SCH ×2 (07:59→10:04)
--- NOTE | 2017-09-09 08:17 | CON ---
DATE: 09/08/2017 HISTORY OF PRESENT ILLNESS: I saw her initially on the regular hospital floor when she was first admitted and I saw her for right knee pain. We aspirated the knee on 09/07/2017 and showed pseudogout with crystals and we injected with cortisone. She feels much better on the right knee now being that she is on TCU floor, could go for physical therapy as she feels much less pain, so I am going to write an order for ambulation with a walker and strengthening exercises and cortisone would help - is going to help the arthritis. If she needs anything more, I could give Hyalgan injections in the office. FINAL DIAGNOSES: Osteoarthritis, right knee with evidence of pseudogout on the fluid removed on 09/07/2017. Griffin Frank DO
[2017-09-09] MEDS: NIFEdipine 60 mg ER Tab PO SCH (10:06)
[2017-09-09] MEDS ORDERED: Insulin Detemir 100 units/ml Vial (Levemir) SC SCH (22:00)
[2017-09-10] MEDS: Insulin Lispro (humaLOG) MEDIUM Coverage SC SCH ×4 (06:46→21:52)
--- NOTE | 2017-09-10 07:00 | CP.PCM.PN ---
<Sumanth Jones - Last Filed: 09/10/17 09:57> Subjective - Date & Time of Evaluation Date of Evaluation: 09/10/17 Time of Evaluation: 07:00 - Subjective Subjective: Medicine Note for Dr. Alvarado Patient seen and examined at bedside. No acute event overnight. Patient has no complaints. She has been participating in PT and has been making progress. Objective - Vital Signs/Intake and Output Vital Signs (last 24 hours): Temp Pulse Resp BP Pulse Ox 98.3 F 72 20 125/65 09/07/17 21:45 09/09/17 10:06 09/07/17 21:45 09/09/17 10:06 - Medications Medications: Current Medications Albuterol/Ipratropium (Duoneb 3 Mg/0.5 Mg (3 Ml) Ud) 3 ml IH [id number] PRN; Protocol PRN Reason: sob Aspirin (Ecotrin) 81 mg PO 0800 [facility] PRN Reason: Protocol Last Admin: 09/09/17 07:58 Dose: 81 mg Atorvastatin Calcium (Lipitor) 20 mg PO HS [facility] PRN Reason: Protocol Last Admin: 09/09/17 21:18 Dose: 20 mg Doxazosin Mesylate (Cardura) 2 mg PO 0800 [facility] PRN Reason: Protocol Famotidine (Pepcid) 20 mg PO 1000,2200 [facility] PRN Reason: Protocol Last Admin: 09/09/17 21:18 Dose: 20 mg Gabapentin (Neurontin) 100 mg PO TID [facility] PRN Reason: Protocol Last Admin: 09/09/17 17:31 Dose: 100 mg Heparin Sodium (Porcine) (Heparin) 5,000 units SC Q8H [facility] PRN Reason: Protocol Last Admin: 09/10/17 05:10 Dose: 5,000 units Home Med (Home Med) 1 unit PO DAILY [facility] Last Admin: 09/09/17 10:04 Dose: Not Given Hydralazine HCl (Apresoline) 10 mg PO Q6H PRN; Protocol PRN Reason: htn Insulin Detemir (Levemir) 6 unit SC HS [facility] Last Admin: 09/09/17 22:39 Dose: 6 unit Insulin Human Lispro (Humalog Med) 0 units SC ACHS [facility] PRN Reason: Protocol Last Admin: 09/10/17 06:46 Dose: 3 units Nifedipine (Procardia Xl) 60 mg PO DAILY [facility] PRN Reason: Protocol Last Admin: 09/09/17 10:06 Dose: 60 mg Repaglinide (Prandin) 1 mg PO 0800,1200,1800 [facility] PRN Reason: Protocol Last Admin: 09/09/17 17:32 Dose: 1 mg Tamsulosin HCl (Flomax) 0.4 mg PO 1830 [facility] PRN Reason: Protocol Last Admin: 09/08/17 17:38 Dose: 0.4 mg - Constitutional Appears: No Acute Distress - Head Exam Head Exam: ATRAUMATIC, NORMOCEPHALIC - Eye Exam Eye Exam: Normal appearance - ENT Exam ENT Exam: Mucous Membranes Moist - Respiratory Exam Respiratory Exam: Clear to Ausculation Bilateral, NORMAL BREATHING PATTERN - Cardiovascular Exam Cardiovascular Exam: REGULAR RHYTHM - GI/Abdominal Exam GI & Abdominal Exam: Soft, Normal Bowel Sounds. absent: Tenderness - Extremities Exam Extremities Exam: Normal Capillary Refill - Neurological Exam Neurological Exam: Alert, Awake, CN II-XII Intact, Normal Gait, Oriented x3 - Psychiatric Exam Psychiatric exam: Normal Affect, Normal Mood - Skin Skin Exam: Dry, Intact, Normal Color, Warm Assessment and Plan - Assessment and Plan (Free Text) Assessment: 82F with PMH of HTN, HLD, DM, CHF, CKD and asthma presents to [facility] for right sided weakness and aphasia due to hypoglycemia. Patient in TCU for further physical therapy and conditioning. Plan: HTN -Procardia 60mg PO daily -Coreg 20mg PO daily -Hydralazine prn -Cardio Dr Call consulted, help appreciated -Monitor BP Hx of DM2 -RISS Med -Accucheck ACHS -HgbA1c is 6.9 -Restart home med Prandin 0.5 mg PO TID -Will increase Prandin dose slowly -Will re-evaluate glucose levels to see if home insulin is necessary Hx of HLD -Continue Lipitor 20mg HS Hx of asthma -Duoneb prn -Continue ISS Q2H Chronic Kidney Disease -Renal function is stable at this time Prophylactic Measures GI ppx: Pepcid DVT ppx: Heparin PT/OT Case discussed with Dr Christiano Jones PGY1 <Lori Alvarado - Last Filed: 09/10/17 15:06> Objective - Vital Signs/Intake and Output Vital Signs (last 24 hours): Temp Pulse Resp BP Pulse Ox 98.3 F 79 20 152/69 H 09/07/17 21:45 09/10/17 09:43 09/07/17 21:45 09/10/17 09:43 - Medications Medications: Current Medications Acetaminophen (Tylenol 325mg Tab) 650 mg PO Q4H PRN; Protocol PRN Reason: Pain, Mild (1-3) Albuterol/Ipratropium (Duoneb 3 Mg/0.5 Mg (3 Ml) Ud) 3 ml IH [id number] PRN; Protocol PRN Reason: sob Aspirin (Ecotrin) 81 mg PO 0800 [facility] PRN Reason: Protocol Last Admin: 09/10/17 08:09 Dose: 81 mg Atorvastatin Calcium (Lipitor) 20 mg PO HS [facility] PRN Reason: Protocol Last Admin: 09/09/17 21:18 Dose: 20 mg Doxazosin Mesylate (Cardura) 2 mg PO 0800 [facility] PRN Reason: Protocol Last Admin: 09/10/17 08:09 Dose: 2 mg Famotidine (Pepcid) 20 mg PO 1000,2200 [facility] PRN Reason: Protocol Last Admin: 09/10/17 09:43 Dose: 20 mg Gabapentin (Neurontin) 100 mg PO TID [facility] PRN Reason: Protocol Last Admin: 09/10/17 13:19 Dose: 100 mg Heparin Sodium (Porcine) (Heparin) 5,000 units SC Q8H [facility] PRN Reason: Protocol Last Admin: 09/10/17 13:21 Dose: 5,000 units Home Med (Home Med) 1 unit PO DAILY [facility] Last Admin: 09/10/17 09:42 Dose: 1 unit Hydralazine HCl (Apresoline) 10 mg PO Q6H PRN; Protocol PRN Reason: htn Insulin Detemir (Levemir) 10 unit SC HS [facility] Insulin Human Lispro (Humalog Med) 0 units SC ACHS [facility] PRN Reason: Protocol Last Admin: 09/10/17 12:30 Dose: 7 units Nifedipine (Procardia Xl) 60 mg PO DAILY [facility] PRN Reason: Protocol Last Admin: 09/10/17 09:43 Dose: 60 mg Repaglinide (Prandin) 1 mg PO 0800,1200,1800 [facility] PRN Reason: Protocol Last Admin: 09/10/17 13:15 Dose: 1 mg Tamsulosin HCl (Flomax) 0.4 mg PO 1830 [facility] PRN Reason: Protocol Last Admin: 09/08/17 17:38 Dose: 0.4 mg Attending/Attestation - Attestation I have personally seen and examined this patient.: Yes I have fully participated in the care of the patient.: Yes I have reviewed all pertinent clinical information, including history, physical exam and plan: Yes Notes (Text): I have seen and examined the patient at bedside. Agree with the above note with the following additions/ exceptions: Briefly this is 82 year old female with history of HTN, dyslipidemia, DM-2, asthma, osteoarthritis who was admitted for AMS, right sided weakness and aphasia secondary to hypoglycemia due to insulin and oral hypoglycemics. A1C is 6.9. She has been having hyperglycemia. Prandin was increased yesterday and lantus was started. Will adjust the dosage of lantus (increase). Patient has been participating in PT. Upon discharge patient will follow up with .
[2017-09-10] MEDS: CARVEDILOL 20 MG PO SCH (09:42)
[2017-09-10] MEDS: NIFEdipine 60 mg ER Tab PO SCH (09:43)
[2017-09-10] MEDS: Insulin Detemir 100 units/ml Vial (Levemir) SC SCH (21:54)
[2017-09-11] MEDS: Insulin Lispro (humaLOG) MEDIUM Coverage SC SCH ×4 (06:57→21:52)
[2017-09-11] MEDS: CARVEDILOL 20 MG PO SCH (09:55)
[2017-09-11] MEDS: NIFEdipine 60 mg ER Tab PO SCH (09:56)
[2017-09-11] MEDS: Insulin Detemir 100 units/ml Vial (Levemir) SC SCH (21:52)
[2017-09-12] MEDS: Insulin Lispro (humaLOG) MEDIUM Coverage SC SCH ×4 (06:32→21:44)
[2017-09-12] MEDS: CARVEDILOL 20 MG PO SCH (09:45)
[2017-09-12] MEDS: NIFEdipine 60 mg ER Tab PO SCH (09:47)
--- NOTE | 2017-09-12 12:17 | CP.PCM.PN ---
<Rip Sin - Last Filed: 09/12/17 12:13> Subjective - Date & Time of Evaluation Date of Evaluation: 09/12/17 Time of Evaluation: 12:13 - Subjective Subjective: Patient seen and examined at bedside. Complaining she feels weak today. May be related to her rehab yesterday. Has trouble getting into and out of bed so when she is is out of bed in the morning she prefers to remain out of bed. No other complaints today. Tolerating new insulin regimen without a problem. Objective - Vital Signs/Intake and Output Vital Signs (last 24 hours): Temp Pulse Resp BP Pulse Ox 98 F 77 18 154/70 H 100 09/11/17 16:59 09/12/17 09:47 09/11/17 16:59 09/12/17 09:47 09/11/17 16:00 - Medications Medications: Current Medications Acetaminophen (Tylenol 325mg Tab) 650 mg PO Q4H PRN; Protocol PRN Reason: Pain, Mild (1-3) Last Admin: 09/11/17 10:05 Dose: 650 mg Albuterol/Ipratropium (Duoneb 3 Mg/0.5 Mg (3 Ml) Ud) 3 ml IH [id number] PRN; Protocol PRN Reason: sob Aspirin (Ecotrin) 81 mg PO 0800 [facility] PRN Reason: Protocol Last Admin: 09/12/17 08:21 Dose: 81 mg Atorvastatin Calcium (Lipitor) 20 mg PO HS [facility] PRN Reason: Protocol Last Admin: 09/11/17 21:54 Dose: 20 mg Doxazosin Mesylate (Cardura) 2 mg PO 0800 [facility] PRN Reason: Protocol Last Admin: 09/12/17 08:21 Dose: 2 mg Famotidine (Pepcid) 20 mg PO 2200 [facility] PRN Reason: Protocol Last Admin: 09/11/17 21:54 Dose: 20 mg Gabapentin (Neurontin) 100 mg PO TID [facility] PRN Reason: Protocol Last Admin: 09/12/17 09:46 Dose: 100 mg Home Med (Home Med) 1 unit PO DAILY [facility] Last Admin: 09/12/17 09:45 Dose: 1 unit Hydralazine HCl (Apresoline) 10 mg PO Q6H PRN; Protocol PRN Reason: htn Insulin Detemir (Levemir) 12 unit SC HS [facility] Insulin Human Lispro (Humalog Med) 0 units SC ACHS [facility] PRN Reason: Protocol Last Admin: 09/12/17 12:07 Dose: 7 units Nifedipine (Procardia Xl) 60 mg PO DAILY [facility] PRN Reason: Protocol Last Admin: 09/12/17 09:47 Dose: 60 mg Repaglinide (Prandin) 1 mg PO 0800,1200,1800 [facility] PRN Reason: Protocol Last Admin: 09/12/17 12:06 Dose: 1 mg Tamsulosin HCl (Flomax) 0.4 mg PO 1830 [facility] PRN Reason: Protocol Last Admin: 09/11/17 19:29 Dose: 0.4 mg - Constitutional Appears: Well - Head Exam Head Exam: ATRAUMATIC, NORMAL INSPECTION, NORMOCEPHALIC - Eye Exam Eye Exam: EOMI, Normal appearance, PERRL Pupil Exam: NORMAL ACCOMODATION, PERRL - ENT Exam ENT Exam: Mucous Membranes Moist, Normal Exam - Neck Exam Neck Exam: Full ROM, Normal Inspection. absent: Lymphadenopathy - Respiratory Exam Respiratory Exam: Clear to Ausculation Bilateral, NORMAL BREATHING PATTERN - Cardiovascular Exam Cardiovascular Exam: REGULAR RHYTHM, +S1, +S2. absent: Murmur - GI/Abdominal Exam GI & Abdominal Exam: Soft, Normal Bowel Sounds. absent: Tenderness - Extremities Exam Extremities Exam: Full ROM, Normal Capillary Refill, Normal Inspection. absent : Joint Swelling, Pedal Edema - Back Exam Back Exam: NORMAL INSPECTION - Neurological Exam Neurological Exam: Alert, Awake, CN II-XII Intact, Normal Gait, Oriented x3 - Psychiatric Exam Psychiatric exam: Normal Affect, Normal Mood - Skin Skin Exam: Dry, Intact, Normal Color, Warm Assessment and Plan (1) HTN (hypertension) Assessment & Plan: -Procardia 60mg PO daily -Coreg 20mg PO daily -Hydralazine prn -Cardio Dr Call consulted, help appreciated -Monitor BP Status: Chronic (2) Diabetes mellitus Assessment & Plan: -RISS Med -Accucheck ACHS -HgbA1c is 6.9 -Prandin 1mg ACHS -Levemir 12 units BID Status: Chronic (3) HLD (hyperlipidemia) Assessment & Plan: Lipitor 20mg HS Status: Chronic (4) Asthma Assessment & Plan: Duonebs PRN Status: Acute (5) Prophylactic measure Assessment & Plan: Patient is ambulating, No need for DVT PPX at this time No GI PPX indicated at this time Status: Acute <Rubén Alvaradoshola Lozano - Last Filed: 09/12/17 12:54> Objective - Vital Signs/Intake and Output Vital Signs (last 24 hours): Temp Pulse Resp BP Pulse Ox 98 F 77 18 154/70 H 100 09/11/17 16:59 09/12/17 09:47 09/11/17 16:59 09/12/17 09:47 09/11/17 16:00 - Medications Medications: Current Medications Acetaminophen (Tylenol 325mg Tab) 650 mg PO Q4H PRN; Protocol PRN Reason: Pain, Mild (1-3) Last Admin: 09/11/17 10:05 Dose: 650 mg Albuterol/Ipratropium (Duoneb 3 Mg/0.5 Mg (3 Ml) Ud) 3 ml IH [id number] PRN; Protocol PRN Reason: sob Aspirin (Ecotrin) 81 mg PO 0800 [facility] PRN Reason: Protocol Last Admin: 09/12/17 08:21 Dose: 81 mg Atorvastatin Calcium (Lipitor) 20 mg PO HS [facility] PRN Reason: Protocol Last Admin: 09/11/17 21:54 Dose: 20 mg Doxazosin Mesylate (Cardura) 2 mg PO 0800 [facility] PRN Reason: Protocol Last Admin: 09/12/17 08:21 Dose: 2 mg Gabapentin (Neurontin) 100 mg PO TID [facility] PRN Reason: Protocol Last Admin: 09/12/17 09:46 Dose: 100 mg Home Med (Home Med) 1 unit PO DAILY [facility] Last Admin: 09/12/17 09:45 Dose: 1 unit Hydralazine HCl (Apresoline) 10 mg PO Q6H PRN; Protocol PRN Reason: htn Insulin Detemir (Levemir) 12 unit SC HS [facility] Insulin Human Lispro (Humalog Med) 0 units SC ACHS [facility] PRN Reason: Protocol Last Admin: 09/12/17 12:07 Dose: 7 units Nifedipine (Procardia Xl) 60 mg PO DAILY [facility] PRN Reason: Protocol Last Admin: 09/12/17 09:47 Dose: 60 mg Repaglinide (Prandin) 1 mg PO 0800,1200,1800 [facility] PRN Reason: Protocol Last Admin: 09/12/17 12:06 Dose: 1 mg Tamsulosin HCl (Flomax) 0.4 mg PO 1830 [facility] PRN Reason: Protocol Last Admin: 09/11/17 19:29 Dose: 0.4 mg Attending/Attestation - Attestation I have personally seen and examined this patient.: Yes I have fully participated in the care of the patient.: Yes I have reviewed all pertinent clinical information, including history, physical exam and plan: Yes Notes (Text): I have seen and examined the patient at bedside. Agree with the above note with the following additions/ exceptions: Briefly this is 82 year old female with history of HTN, dyslipidemia, DM-2, asthma, osteoarthritis who was admitted for AMS, right sided weakness and aphasia secondary to hypoglycemia due to insulin and oral hypoglycemics. A1C is 6.9. Now she has hyperglycemia which is also improving. Continue prandin and increase lantis. Patient has been participating in PT. Upon discharge patient will follow up with .
[2017-09-12] MEDS: Insulin Detemir 100 units/ml Vial (Levemir) SC SCH (21:27)
[2017-09-13] MEDS: Insulin Lispro (humaLOG) MEDIUM Coverage SC SCH ×4 (06:31→22:12)
[2017-09-13] MEDS: CARVEDILOL 20 MG PO SCH (09:42)
[2017-09-13] MEDS: NIFEdipine 60 mg ER Tab PO SCH (09:43)
[2017-09-13 14:37] VITALS: RESP 18
[2017-09-13] MEDS: Insulin Detemir 100 units/ml Vial (Levemir) SC SCH (22:11)
[2017-09-14] MEDS: Insulin Lispro (humaLOG) MEDIUM Coverage SC SCH ×4 (06:39→21:59)
[2017-09-14 07:06] VITALS: TEMP 98.1
--- NOTE | 2017-09-14 07:48 | CP.PCM.PN ---
<Sumanth Jones - Last Filed: 09/14/17 14:40> Subjective - Date & Time of Evaluation Date of Evaluation: 09/14/17 Time of Evaluation: 07:30 - Subjective Subjective: Medicine Note for Dr. Wood Patient seen and examined at bedside. No acute event overnight. Patient states that her right knee is feeling fine today. She has no complaints. Patient will need Diabetic counseling. Objective - Vital Signs/Intake and Output Vital Signs (last 24 hours): Temp Pulse Resp BP Pulse Ox 98.1 F 70 18 156/76 H 98 09/14/17 06:00 09/14/17 06:00 09/14/17 06:00 09/14/17 06:00 09/14/17 06:00 - Medications Medications: Current Medications Acetaminophen (Tylenol 325mg Tab) 650 mg PO Q4H PRN; Protocol PRN Reason: Pain, Mild (1-3) Last Admin: 09/11/17 10:05 Dose: 650 mg Albuterol/Ipratropium (Duoneb 3 Mg/0.5 Mg (3 Ml) Ud) 3 ml IH [id number] PRN; Protocol PRN Reason: sob Aspirin (Ecotrin) 81 mg PO 0800 [facility] PRN Reason: Protocol Last Admin: 09/13/17 07:51 Dose: 81 mg Atorvastatin Calcium (Lipitor) 20 mg PO HS [facility] PRN Reason: Protocol Last Admin: 09/13/17 22:10 Dose: 20 mg Doxazosin Mesylate (Cardura) 2 mg PO 0800 [facility] PRN Reason: Protocol Last Admin: 09/13/17 07:51 Dose: 2 mg Gabapentin (Neurontin) 100 mg PO TID [facility] PRN Reason: Protocol Last Admin: 09/13/17 17:29 Dose: 100 mg Home Med (Home Med) 1 unit PO DAILY [facility] Last Admin: 09/13/17 09:42 Dose: 1 unit Hydralazine HCl (Apresoline) 10 mg PO Q6H PRN; Protocol PRN Reason: htn Insulin Detemir (Levemir) 12 unit SC HS [facility] Last Admin: 09/13/17 22:11 Dose: 12 unit Insulin Human Lispro (Humalog Med) 0 units SC ACHS [facility] PRN Reason: Protocol Last Admin: 09/14/17 06:39 Dose: Not Given Nifedipine (Procardia Xl) 60 mg PO DAILY [facility] PRN Reason: Protocol Last Admin: 09/13/17 09:43 Dose: 60 mg Repaglinide (Prandin) 1 mg PO 0800,1200,1800 [facility] PRN Reason: Protocol Last Admin: 09/13/17 17:30 Dose: 1 mg Tamsulosin HCl (Flomax) 0.4 mg PO 1830 [facility] PRN Reason: Protocol Last Admin: 09/13/17 17:30 Dose: 0.4 mg - Constitutional Appears: No Acute Distress - Head Exam Head Exam: ATRAUMATIC, NORMOCEPHALIC - Eye Exam Eye Exam: EOMI, Normal appearance Pupil Exam: PERRL - ENT Exam ENT Exam: Mucous Membranes Moist - Respiratory Exam Respiratory Exam: Clear to Ausculation Bilateral, NORMAL BREATHING PATTERN - Cardiovascular Exam Cardiovascular Exam: REGULAR RHYTHM - GI/Abdominal Exam GI & Abdominal Exam: Soft, Normal Bowel Sounds. absent: Tenderness - Extremities Exam Extremities Exam: Normal Capillary Refill. absent: Calf Tenderness, Joint Swelling - Back Exam Back Exam: absent: CVA tenderness (L), CVA tenderness (R) - Neurological Exam Neurological Exam: Alert, Awake, Oriented x3 - Psychiatric Exam Psychiatric exam: Normal Affect, Normal Mood - Skin Skin Exam: Dry, Intact, Normal Color, Warm Assessment and Plan - Assessment and Plan (Free Text) Plan: (1) HTN (hypertension) Assessment & Plan: -Procardia 60mg PO daily -Coreg 20mg PO daily -Hydralazine prn -Cardio Dr Call consulted, help appreciated -Monitor BP Status: Chronic (2) Diabetes mellitus Assessment & Plan: -Diabetic counseling -RISS Med -Accucheck ACHS -HgbA1c is 6.9 -Prandin 1mg ACHS -Levemir 12 units BID Status: Chronic (3) HLD (hyperlipidemia) Assessment & Plan: Lipitor 20mg PO HS Status: Chronic (4) Asthma Assessment & Plan: Duonebs PRN Status: Acute (5) Prophylactic measure Assessment & Plan: DVT and GI ppx not indicated at this time PT/OT Status: Acute <Khadijah Wood - Last Filed: 09/15/17 15:07> Objective - Vital Signs/Intake and Output Vital Signs (last 24 hours): Temp Pulse Resp BP Pulse Ox 98.1 F 70 18 169/71 H 97 09/14/17 16:30 09/15/17 10:02 09/14/17 22:00 09/15/17 10:02 09/14/17 22:00 Attending/Attestation - Attestation I have personally seen and examined this patient.: Yes I have fully participated in the care of the patient.: Yes I have reviewed all pertinent clinical information, including history, physical exam and plan: Yes Notes (Text): 09/15/17 15:05 Medical record note made by the resident after discussion with my direction and input after the patient was personally seen and examined by me. I have reviewed the chart and agree that the record accurately reflects by personal performance of the history, physical exam, data review, and medical decision-making, in the course for the patient. I have also personally directed the plan of care. 82 year old female with history of HTN, dyslipidemia, DM-2, asthma, osteoarthritis who was admitted for change of mental status , right sided weakness and aphasia secondary to hypoglycemia due to insulin and oral hypoglycemics. A1C is 6.9. Her diabtic medications are adjusted. Continue prandin and current dose of lantus.. Patient has been participating in PT. Upon discharge patient will follow up with . Management plan was discussed in detail with patient. Education was provided.
[2017-09-14] MEDS: CARVEDILOL 20 MG PO SCH (09:10)
[2017-09-14] MEDS: NIFEdipine 60 mg ER Tab PO SCH (09:11)
[2017-09-14 17:08] VITALS: O2SAT 97
[2017-09-14] MEDS: Insulin Detemir 100 units/ml Vial (Levemir) SC SCH (21:59)
[2017-09-15] MEDS: Insulin Lispro (humaLOG) MEDIUM Coverage SC SCH ×2 (06:43→12:07)
--- NOTE | 2017-09-15 07:51 | CP.PCM.DIS ---
<Sumanth Jones - Last Filed: 09/15/17 13:36> Provider - Provider Date of Admission: 09/07/17 19:44 Attending physician: Khadijah Wood MD Consults: Cardio: Jakub Time Spent in preparation of Discharge (in minutes): 45 Hospital Course - Lab Results Lab Results: Most Recent Lab Values POC Glucose (mg/dL) 150 mg/dL (65-110) H 09/15/17 05:43 - Hospital Course Hospital Course: 82F with PMH that includes HTN, HLD, DM, and asthma presented to [facility] for right sided weakness and aphasia on 09/03. Patient was found to be hypoglycemic in ED at that time. Head CT, MRI and MRA found to be unremarkable. ECHO showed normal LVEF with diastolic dysfunction. The etiology of her symptoms were presumed to be caused by the hypoglycemia. Cardiology and Neurology were both consulted and evaluated her during inpatient admision. Patient's symptoms resolved and now transferred to TCU for further physical therapy and conditioning. Patient spent 7 days in TCU for physcial therapy. Her glucose was controlled on diabetic diet, levemir 12 units at bedtime, and prandin 1 mg PO TID. Patient is to resume all other home medications bedside insulin. Nighttime insulin was reduced from 30 units to 12 units. She is deemed medically stable for discharge by Dr. Wood. She is to follow up with PMD and Cariodlogy within 1-2 weeks. (This is a summary of the hospital course. Please refer to EMR for more details. ) - Date & Time of H&P Date of H&P: 09/08/17 Time of H&P: 07:12 Discharge Exam - Head Exam Head Exam: ATRAUMATIC, NORMOCEPHALIC - Eye Exam Eye Exam: EOMI, Normal appearance Pupil Exam: PERRL - ENT Exam ENT Exam: Mucous Membranes Moist - Neck Exam Neck exam: Normal Inspection - Respiratory Exam Respiratory Exam: Clear to PA & Lateral, NORMAL BREATHING PATTERN - Cardiovascular Exam Cardiovascular Exam: REGULAR RHYTHM - GI/Abdominal Exam GI & Abdominal Exam: Normal Bowel Sounds, Soft. absent: Tenderness - Extremities Exam Extremities exam: normal capillary refill, pedal pulses present - Back Exam Back exam: absent: CVA tenderness (L), CVA tenderness (R) - Neurological Exam Neurological exam: Alert, CN II-XII Intact, Normal Gait, Oriented x3 - Psychiatric Exam Psychiatric exam: Normal Affect, Normal Mood Discharge Plan - Discharge Medications Prescriptions: Insulin Detemir [Levemir] 12 unit SC HS 30 Days - Follow Up Plan Condition: GOOD Disposition: HOME/ ROUTINE Instructions: Preventing Falls in the Older Adult, Diabetes Type 2 (DC), Hypertension (DC) Additional Instructions: New home med is Levemir 12 unit at night Resume all other home medication as prescribed by PMD/Cardio Adhere to Diabetic diet and exercise regularly Follow upwith PMD within 1 week Please return to ED if symptoms persist or condition worsens Referrals: Tom Call MD [Staff Provider] - <Khadijah Wood - Last Filed: 09/15/17 15:21> Provider - Provider Date of Admission: 09/07/17 19:44 Attending physician: Khadijah Wood MD Hospital Course - Lab Results Lab Results: Most Recent Lab Values POC Glucose (mg/dL) 224 mg/dL (65-110) H 09/15/17 11:46 Attending/Attestation - Attestation I have personally seen and examined this patient.: Yes I have fully participated in the care of the patient.: Yes I have reviewed all pertinent clinical information, including history, physical exam and plan: Yes Notes (Text): 09/15/17 15:17 Medical record note made by the resident after discussion with my direction and input after the patient was personally seen and examined by me. I have reviewed the chart and agree that the record accurately reflects by personal performance of the history, physical exam, data review, and medical decision-making, in the course for the patient. I have also personally directed the plan of care. 82 year old female with history of HTN, dyslipidemia, DM-2, asthma, osteoarthritis who was admitted for change of mental status , right sided weakness and aphasia secondary to hypoglycemia due to insulin and oral hypoglycemics. A1C is 6.9. Her diabtic medications were adjusted.Her Levemir dose has been changed to 12 units . She was later transferred to TCU for rehabilitation.Blood sugars are better controlled. She is feeling close to base line. Patient will be discharged home and will follow up with . Management plan was discussed in detail with patient. Education was provided.
[2017-09-15] MEDS: CARVEDILOL 20 MG PO SCH (10:01)
[2017-09-15] MEDS: NIFEdipine 60 mg ER Tab PO SCH (10:02)
[2017-09-15 10:04] VITALS: BP 169/71; PULSE 70
== END 2017-09-15 14:43 | disposition home or self-care (01) | DRG 638 ==
LOC: TRCU 19:44
PROVIDERS: ADMIT Internal Medicine; ATTEND Internal Medicine
PROC: F07Z9FZ Gait Training/Functional Ambulation Treatment using Assistive, Adaptive, Supportive or Protective Equipment (ICD-10-PCS; principal; 2017-09-08)
PROC: F08Z4FZ Home Management Treatment using Assistive, Adaptive, Supportive or Protective Equipment (ICD-10-PCS; 2017-09-08)
DX: E11.649 Type 2 diabetes mellitus with hypoglycemia without coma (principal); T38.3X5A Adverse effect of insulin and oral hypoglycemic [antidiabetic] drugs, initial encounter; R47.01 Aphasia; I13.0 Hypertensive heart and chronic kidney disease with heart failure and stage 1 through stage 4 chronic kidney disease, or unspecified chronic kidney disease; R53.1 Weakness; E11.65 Type 2 diabetes mellitus with hyperglycemia; I50.9 Heart failure, unspecified; E78.00 Pure hypercholesterolemia, unspecified; M17.11 Unilateral primary osteoarthritis, right knee; M11.261 Other chondrocalcinosis, right knee; N18.9 Chronic kidney disease, unspecified; E11.22 Type 2 diabetes mellitus with diabetic chronic kidney disease; J45.909 Unspecified asthma, uncomplicated; Z96.652 Presence of left artificial knee joint

== ENCOUNTER 2018-07-22 09:52 | Outpatient (CLI) | payer MEDICARE | END 2018-07-22 09:53 | disposition home or self-care (01) | LOC: RAD 09:52 ==